=== PATIENT | male | born 1975 | race Caucasian/White ===

== ENCOUNTER 2018-06-12 13:07 | Inpatient (IN) | payer OTHER ==
[~2018-06-12] VITALS: Ht 167.6 cm; Wt 99.8 kg
--- NOTE | 2018-06-12 13:25 | NUR ---
PRE ADMISSION: Pt in intake . His gait is steady. He is A/o X 4 with blunted affect and depressed mood. He denies S/I and H/I. BP 120/59 P 86 R 16 O2 sat 98% Steady gait. He reports he drinks wine, 2 bottles daily (1500 ml ) for the last 2 weeks. Prior to 2 weeks ago he reports drinking 4 bottles daily (3000 ml) but has tapered down.Last drank 750 ml of wine at 0700 this AM. he states he relapsed 2 years ago after having 5 years of sobriety. He reports he cannot stop drinking on his own as he has terrible w/d symptoms which include tremors,dry heaves,hallucinations,irritability and weakness. He reports Cirrhosis of the liver,insomnia,depression and anxiety. He sees a liver specialist and brought home medications r/t liver disease. He states he went to ER in [place] last Monday because he tried to stop drinking on his own and they sent him to [facility] in [place] where he was turned away because of his liver condition. Will assess Pt on unit.
[2018-06-12] MEDS ORDERED: SERT100T PO (13:45)
[2018-06-12] MEDS ORDERED: RIFA550T PO (13:45)
[2018-06-12] MEDS ORDERED: SPIR100T5 PO (13:45)
[2018-06-12] MEDS ORDERED: TRAZ-214 PO (13:45)
[2018-06-12] MEDS ORDERED: GABA-534 PO (13:45)
[2018-06-12] MEDS ORDERED: OMEP20CA10 PO (13:45)
[2018-06-12] MEDS ORDERED: potassium (13:45)
[2018-06-12] MEDS ORDERED: MILK175T2 PO (13:45)
[2018-06-12] MEDS ORDERED: MULT-1121 PO (13:45)
[2018-06-12 13:59] LABS: *AMPHETAMINE, URINE NEGATIVE (NEGATIVE); *BARBITURATE, URINE NEGATIVE (NEGATIVE); *CANNABINOID, URINE NEGATIVE (NEGATIVE); *COCCAINE, URINE NEGATIVE (NEGATIVE); *OPIATE, URINE NEGATIVE (NEGATIVE); *PHENCYCLIDINE SCREEN,URINE NEGATIVE (NEGATIVE)
--- NOTE | 2018-06-12 15:00 | NUR ---
ADMISSION: A 43 year old male admitted for medically supervises withdrawal from ETOH. No denies allergies. He is A/O x 4. He presents with blunted affect and depressed mood. he denies S/I and H/I. He denies 5150 holds or psychiatric hospitalizations in his history. He is disheveled and his hands are tremulous. He reports having one seizure that he is aware of in October of 2017 in ER. Tremors noted to bilateral hands. He reports anxiety,tremors,mild nausea and irritability.CIWA 14. His abdomen is distended ,tender and hard to the touch. He reports medical hx of Cirrhosis diagnosed 2 years ago. He also reports depression and anxiety.He states he has had 2 paracentesis to r/t ascites from Cirrhosis. The last one in October 2017. He is on diuretics which he brought from home and Zoloft for depression. Pt states he is unable to stop drinking on his own and when he does he gets so sick that he has to go to ER. He went to ER last Monday after not drinking all day and they gave him a Librium pill and sent him to [facility] where he states he was turned away because of his liver disease. He reports his s/s of w/d are horrible and include hallucinations,tremors,dry heaves,sweats,irritability,weakness and severe anxiety. SUBSTANCE USE: ETOH: He reports he drinks Wine, 2 bottles daily (1500 ml ) for the last 2 weeks. Prior to 2 weeks ago he reports drinking 4 bottles daily (3000 ml) but has tapered down.Last drank 750 ml of wine at 0700 this AM. He states he relapsed 2 years ago after having 5 years of sobriety. He reports he cannot stop drinking on his own. He reports having 5 years of sobriety until 5 years ago and thinks his depression was a trigger when he relapsed. he thinks his obstacles for staying sober are loneliness and depression. He has been to [facility] for outpatient and inpatient at least 3 times but is not clear about time periods. He reports that drinking has caused his to leave him 1.5 years ago with his 2 kids and his health is also suffering due to his drinking problem. He reports that his motivation to stop drinking is to get his family back and improve his health.e states" I want my life back". He reports he blacks out on occasion when he drinks and states everyone is fed up with his drinking. Offered support. Oriented Pt to staff and unit. Assured him that nursing staff is available 27/03. Will continue to provide safe and supportive environment. Addendum: 06/12/18 at 1609 by CJ ALBARRAN RN Correction: Regarding Substance abuse. he has been drinking for 2 years and had 5 years of sobriety prior with a 20 year history. Addendum: 06/12/18 at 1820 by CJ ALBARRAN RN Edema noted to BLE. He is currently on Diuretics.
[2018-06-12] MEDS ORDERED: MAGNESIUM HYDROXIDE 30 ML LIQUID UDC PO PRN (15:30)
[2018-06-12] MEDS ORDERED: ONDANSETRON ODT 4 MG TAB.RAPDIS SL PRN (15:30)
[2018-06-12] MEDS ORDERED: THIAMINE HCL 200 MG/2 ML VIAL IM ONE (15:30)
[2018-06-12] MEDS ORDERED: ONDANSETRON 4 MG/2 ML VIAL IM PRN (15:30)
[2018-06-12] MEDS ORDERED: CLONIDINE HCL 0.1 MG TABLET PO PRN (15:30)
[2018-06-12] MEDS ORDERED: LOPERAMIDE HCL 2 MG CAPSULE PO PRN ×2 (15:30)
[2018-06-12] MEDS ORDERED: MAG HYDROX/AL HYDROX/SIMETH 30 ML LIQUID UDC PO PRN (15:30)
[2018-06-12] MEDS ORDERED: ACETAMINOPHEN 325 MG TABLET PO PRN (15:30)
[2018-06-12] MEDS ORDERED: LORAZEPAM 1 MG TABLET PO PRN (15:30)
[2018-06-12] MEDS ORDERED: LORAZEPAM 2 MG/1 ML VIAL IM PRN (15:30)
[2018-06-12 16:00] VITALS: BP 122/68
[2018-06-12 16:06] LABS: BASOPHILS % (AUTO) 0.6 % (0.0-2.0); EOSINOPHILS % (AUTO) 1.3 % (0.0-7.0); HEMATOCRIT 28.8 % (36.7-47.1); HEMOGLOBIN 9.4 g/dL (12.5-16.3); LYMPHOCYTES # (AUTO) 0.2 K/uL (20.0-40.0); LYMPHOCYTES % (AUTO) 5.8 % (20.5-51.5); MEAN CORPUSCULAR HEMOGLOBIN 25.9 uug (23.8-33.4); MEAN CORPUSCULAR HGB CONC 33 g/dL (32.5-36.3); MEAN CORPUSCULAR VOLUME 79.6 fL (73.0-96.2); MONOCYTES # (AUTO) 0.2 K/uL (2.0-10.0); NEUTROPHILS # (AUTO) 2.3 K/uL (1.8-8.9); NEUTROPHILS % (AUTO) 83.3 % (38.5-71.5); PLATELET COUNT (AUTO) 80 K/uL (152-348); RED BLOOD CELL COUNT(AUTO) 3.62 MIL/uL (4.06-5.63); WHITE BLOOD COUNT (AUTO) 2.8 K/uL (3.6-10.2)
--- NOTE | 2018-06-12 16:20 | NUR ---
PRN Ativan 1 mg PO given for CIWA 14. He reports anxiety,sweats,tremors,restlessness and mild nausea.Thiamine injection administered as ordered. Will monitor effectiveness of PRN.
[2018-06-12] MEDS: LORAZEPAM 1 MG TABLET PO PRN (16:21)
[2018-06-12 16:25] LABS: BILIRUBIN,TOTAL 1.1 mg/dL (0.2-1.0); CREATININE 0.7 mg/dL (0.6-1.3); MAGNESIUM 1.7 mg/dL (1.8-2.4); TOTAL PROTEIN, SERUM 6.9 g/dL (6.4-8.2)
[2018-06-12 16:34] LABS: BAND % (MANUAL) 1 % (0-10); EOSINOPHILS % (MANUAL) 1 % (0-8); LYMPHOCYTES % (MANUAL) 7 % (20-40); MONOCYTES % (MANUAL) 3 % (2-10); NEUTROPHILS % (MANUAL) 88 % (42-75)
[2018-06-12 16:36] LABS: THYROID STIMULATING HORMONE 0.773 mIU/mL (0.358-3.740)
--- NOTE | 2018-06-12 17:20 | NUR ---
PRN Ativan effective CIWA 10
[2018-06-12] MEDS: RIFAXIMIN 550 MG PO SCH (17:30)
[2018-06-12] MEDS: SPIRONOLACTONE 100 MG TABLET PO SCH (17:30)
[2018-06-12] MEDS: GABAPENTIN 300 MG CAPSULE PO SCH (17:31)
--- NOTE | 2018-06-12 18:53 | NUR ---
END OF SHIFT: Newly admitted today for ETOH withdrawal. Ativan 1 mg PO PRN given and effective.Thiamine injection also given as ordered. Last CIWA 10. Medicated as ordered at 1700. He has Cirrhosis of the liver and his abdomen is distended. Ativan taper to start tomorrow. Ativan PRN available. Seizure precautions noted. Will pass shift report to oncoming night nurse.
--- NOTE | 2018-06-12 19:30 | NUR ---
Start of shift note Received report from day shift nurse. Patient is a 43 year old male newly admitted for ETOH withdrawal. Patient was placed on 5 day Ativan taper to start tomorrow. Patient with PMH of liver cirrhosis. Patient was given PRN Ativan. Thiamine injection given. Last CIWA 10. Patient in the room, resting. Upon assessment, patient presents with flat affect, depressed mood, worried, unshaven, odorous and disheveled. Safety measures in place. Call light in reach. Will continue to monitor.
[2018-06-12 20:00] VITALS: BP 120/68
--- NOTE | 2018-06-12 20:00 | NUR ---
CIWA assessment Patient presents with anxiety, restlessness, has bilateral hand tremors, sensitive to light and sounds, sweating, muscle aches and headache. CIWA 16.
--- NOTE | 2018-06-12 20:00 | NUR ---
COWS and CIWA assessment Patient presents with anxiety , restless, chills, intermittent perspiration , irritability, agitated and tremors. COWS 10 and CIWA 10. Addendum: 06/13/18 at 0042 by FELIPE GALVIN LVN Error: this charting is for another patient
[2018-06-12] MEDS: METHOCARBAMOL 750 MG TABLET PO PRN (20:41)
[2018-06-12] MEDS: TRAZODONE 100 MG TABLET PO SCH (20:42)
--- NOTE | 2018-06-12 20:45 | NUR ---
PRN Ativan and Robaxin administration Patient presents with anxiety, restlessness, has bilateral hand tremors, sensitive to light and sounds, sweating, muscle aches and headache. CIWA 16. Will continue to monitor
[2018-06-12] MEDS ORDERED: MAGNESIUM OXIDE 400 MG TABLET PO ONE (21:00)
[2018-06-13] VITALS: BP 98/53
--- NOTE | 2018-06-13 | NUR ---
CIWA deferred Patient lying in bed with eyes closed. Respiration even and unlabored. Will continue to monitor
[2018-06-13 04:00] VITALS: BP 101/59
--- NOTE | 2018-06-13 04:00 | NUR ---
CIWA deferred Patient lying in bed with eyes closed. Respiration even and unlabored. Will continue to monitor
[2018-06-13] MEDS: METHOCARBAMOL 750 MG TABLET PO PRN (05:24)
[2018-06-13] MEDS: LORAZEPAM 1 MG TABLET PO PRN (05:24)
--- NOTE | 2018-06-13 05:24 | NUR ---
DOUGLAS Diop and Robaxin administration Patient woke up anxious, restless, tremulous and sweating. GERMAN 11. Addendum: 06/13/18 at 0627 by FELIPE GALVIN LVN C/o muscle aches
--- NOTE | 2018-06-13 06:24 | NUR ---
PRN Ativan and Robaxin re-assessment CIWA deferred. Patient lying in bed with eyes closed. Respiration even and unlabored. Will continue to monitor.
[2018-06-13] MEDS: PANTOPRAZOLE SODIUM 40 MG TABLET.DR PO SCH (06:56)
--- NOTE | 2018-06-13 07:18 | NUR ---
End of shift note Patient slept 9 hours. Fluid intake 1,605 ml. Voided x 3. No BM. Monitored patient throughout shift. Patient with PMH of liver cirrhosis. Patient presented with flat affect, depressed mood, unshaven, odorous , disheveled, anxiety, restlessness, bilateral hand tremors, sensitive to light and sounds, sweating, muscle aches and headache. Scheduled medication given as ordered. Taper to start today. PRN Ativan x 2 and Robaxin x 2 given . Last CIWA 11. Safety measures in place. Call light within reach. Will continue to monitor.
[2018-06-13 08:06] LABS: HEPATITIS B SURFACE AG Negative (Negative)
[2018-06-13 08:10] VITALS: BP 95/60
--- NOTE | 2018-06-13 08:10 | NUR ---
START OF SHIFT: Received pt A/O X 4. He presents with restricted affect and anxious mood. Tremors noted to BUE. He reports restless sleep last night. He reports anxiety,depression,irritability,sweats and muscle cramps in his legs. CIWA 16 Ativan taper started to manage s/s of w/d. Encouraged rest today. He refused PPD and states he got vaccinated in [place]. Will inform MD. Seizure precautions noted. Will continue to monitor and manage s/s of w/d.
[2018-06-13] MEDS: MULTIVITAMINS,THERAPEUTIC TABLET PO SCH (08:56)
[2018-06-13] MEDS: RIFAXIMIN 550 MG PO SCH ×2 (08:56→16:58)
[2018-06-13] MEDS: GABAPENTIN 300 MG CAPSULE PO SCH ×2 (08:56→16:59)
[2018-06-13] MEDS: LORAZEPAM 1 MG TABLET PO SCH ×4 (08:56→20:07)
[2018-06-13] MEDS: FOLIC ACID 1 MG TABLET PO SCH (08:56)
[2018-06-13] MEDS: SPIRONOLACTONE 100 MG TABLET PO SCH ×2 (08:56→16:58)
[2018-06-13] MEDS: THIAMINE HCL 100 MG TABLET PO SCH (08:56)
[2018-06-13] MEDS ORDERED: Medication Not On Formulary EA (Omeprazole 20 MG) PO SCH (09:00)
[2018-06-13] MEDS ORDERED: TUBERCULIN,PURIF.PROT.DERIV. 5 TU/0.1 ML TEST ID ONE (09:00)
[2018-06-13] MEDS ORDERED: 5 DAY TAPER OF LORAZEPAM -SERENITY PROTOCOL PO PRN (09:00)
[2018-06-13 12:00] VITALS: BP 105/60
--- NOTE | 2018-06-13 12:15 | NUR ---
BARBARAWA 14. He is tremulous. He reports sweats,anxiety,restlessness and irritability. He also reports fatigue and depression and denies S/I and H/I.
[2018-06-13 16:00] VITALS: BP 111/61
[2018-06-13 16:07] LABS: BILIRUBIN,TOTAL 1.5 mg/dL (0.2-1.0); CREATININE 0.7 mg/dL (0.6-1.3); MAGNESIUM 1.9 mg/dL (1.8-2.4); POTASSIUM 4.5 mmol/L (3.5-5.1); TOTAL PROTEIN, SERUM 6.3 g/dL (6.4-8.2)
[2018-06-13] MEDS: LACTULOSE 20 G/30 ML LIQUID UDC PO SCH ×2 (18:19→20:07)
--- NOTE | 2018-06-13 18:30 | NUR ---
END OF SHIFT: Pt started Ativan taper to manage s/s of w/d which include anxiety,depression,tremors,sweats,restlessness ,irritability and fatigue.Last CIWA 13. Elevated Ammonia levels noted. New order for Lactulose 30ml per MD noted and administered. He has been sleeping on and off most of shift. He is A/o x 4. He is compliant with medication and rest as encouraged. Sz. precautions noted. Safety measures in place.Will pass shift report to oncoming night nurse.
--- NOTE | 2018-06-13 19:15 | NUR ---
Start of shift note Received report from day shift nurse. Pt is a 43 yo male, A+Ox4, presenting to [facility] for medically supervised ETOH withdrawal. Pt noted with fine tremors, anxiety, agitation, and restlessness. Pt has HX of Cirrhosis, depression, anxiety, and insomnia which will be monitored during shift. Pt is on 5 day Ativan taper, tolerated well. Respirations even and unlabored. Will continue to monitor.
[2018-06-13 20:05] VITALS: BP 108/63
[2018-06-13] MEDS: TRAZODONE 100 MG TABLET PO SCH (20:07)
--- NOTE | 2018-06-13 20:30 | NUR ---
CIWA Assessment CIWA: 10. Pt noted with fine tremors, sweat on brow, anxiety, agitation, and mild itchiness. Respirations even and unlabored. Will continue to monitor.
--- NOTE | 2018-06-14 00:50 | NUR ---
V/S refused and CIWA Assessment deferred for sleep. Respirations even and unlabored. Will continue to monitor.
--- NOTE | 2018-06-14 04:41 | NUR ---
V/S refused and CIWA Assessment deferred for sleep. Respirations even and unlabored. Will continue to monitor.
[2018-06-14] MEDS: PANTOPRAZOLE SODIUM 40 MG TABLET.DR PO SCH (06:28)
--- NOTE | 2018-06-14 07:00 | NUR ---
End of shift note Pt was continuously noted with fine tremors, anxiety, and agitation. Pt remained in room for entire shift. Pt remained cooperative and compliant with all aspects of treatment. Pt was not given any PRN medications during shift. Pt remains on 5 day Ativan taper, tolerated well. Pt slept for a total of 11 HRS. Last CIWA: 10 @2029. Respirations even and unlabored. Will endorse to day shift nurse.
--- NOTE | 2018-06-14 07:30 | NUR ---
START OF SHIFT Endorse rcvd from ongoing nurse, client is in bed, lying on his back, sounds asleep, easy to arouse, RR 16 even, non-labored. Client had an uneventful night. he slept 11hrs. Last CIWA 10 @ 2029. Seizure precautions. Bed in lowest/locked position, side rails x 2 up/padded. Call light within reach. Will continue to monitor.
[2018-06-14 08:09] VITALS: BP 97/58
[2018-06-14] MEDS: SPIRONOLACTONE 100 MG TABLET PO SCH ×2 (09:47→16:18)
[2018-06-14] MEDS: GABAPENTIN 300 MG CAPSULE PO SCH ×2 (09:47→16:18)
[2018-06-14] MEDS: LACTULOSE 20 G/30 ML LIQUID UDC PO SCH (09:47)
[2018-06-14] MEDS: MULTIVITAMINS,THERAPEUTIC TABLET PO SCH (09:47)
[2018-06-14] MEDS: LORAZEPAM 1 MG TABLET PO SCH ×3 (09:47→20:04)
[2018-06-14] MEDS: FOLIC ACID 1 MG TABLET PO SCH (09:47)
[2018-06-14] MEDS: THIAMINE HCL 100 MG TABLET PO SCH (09:47)
[2018-06-14] MEDS: RIFAXIMIN 550 MG PO SCH ×2 (09:47→16:18)
[2018-06-14] MEDS: SERTRALINE HCL 100 MG TABLET PO SCH (09:47)
--- NOTE | 2018-06-14 09:47 | NUR ---
WA 16 Client is in room, he is a/o x 4, he appears disheveled, unshaven, he presents with depressed mood, flat affect, flushed facial skin, tremors, and difficulty concentrating. Client reports having no desire to get out of bed, anxiety, cold/chills, sweats, depression, fatigue, difficulty sleeping, nausea, abdominal cramps, panic feeling, and restless legs. Encourage client to increase PO fluid as tolerated to facilitate detox. Schedule Ativan 2mg PO administered. Call light within reach.
--- NOTE | 2018-06-14 10:30 | NUR ---
Therapist prompted client to attend all group therapy sessions.
--- NOTE | 2018-06-14 11:00 | NUR ---
Reassess VTE no edema noted at extremities. CN notified. VTE 2, Intermittent Pneumatic CD at bedside. Client verbalized the need to wear them while in bed.
--- NOTE | 2018-06-14 11:11 | NUR ---
Nursing noted Client reports history of hemorrhoids since is early 20's. CN notified.
--- NOTE | 2018-06-14 12:30 | NUR ---
CIWA 16 Client is in bed, he reports anhedonia, anxiety, chills, clammy skin, depression, flushed facial skin, abdominal spasms, nausea, restless legs, and fatigue. Client reports one episode of loose stool. Encourage client to increase PO fluid intake as tolerated to maintain rehydration and facilitated detox. Non-pharmacologic measures provided. Will continue to monitor. Call light within reach.
[2018-06-14 12:43] VITALS: BP 128/77
--- NOTE | 2018-06-14 14:13 | NUR ---
PRN Zofran 4mg SL administered for intermittent nausea, no episodes of emesis. Bibi bailey and saltine crackers at bedside. Will continue to monitor. Call light within reach.
--- NOTE | 2018-06-14 14:43 | NUR ---
Reassess PRN Zofran 4mg SL , client reports relief from nausea. Call light within reach.
[2018-06-14 16:40] VITALS: BP 114/60
--- NOTE | 2018-06-14 16:45 | NUR ---
CIWA 15 Client continues to present with anxiety, chills, clammy skin, depression, flushed facial skin, abdominal spasms, nausea, diarrhea, restless legs, and fatigue. Encourage client to increase PO fluid intake as tolerated to maintain rehydration and facilitated detox. Non-pharmacologic measures provided. Will continue to monitor. Call light within reach.
--- NOTE | 2018-06-14 19:26 | NUR ---
END OF SHIFT Endorse client to incoming nurse, client is in room continues to present with anxious mood, flat affect, avoidant gaze, tremors, clammy skin, nausea, difficulty concentrating, poor appetite, chills, sweats, restless legs, depression, and difficulty thinking clearly. Last CIWA 15 @ 1640. PRN medications administered and noted per protocol. Client is not compliant with group therapy d/t above withdrawal symptoms. PO fluid intake 1240mL, void x 6, stool x 3. Consumes 50% of meals. Seizure precautions in place. Bed in lowest/locked position, side rails x 2 up/padded. Call light within reach.
--- NOTE | 2018-06-14 19:27 | NUR ---
Start of shift note Received report from day shift nurse. Pt is a 43 yo male, A+ox4, presenting to [facility] for medically supervised ETOH withdrawal. Pt noted with muscle aches, restlessness, anxiety, and agitation. Pt has HX of Cirrhosis, depression, anxiety, insomnia, PTSD, and seizure which will be monitored during shift. Pt is on 5 day Ativan taper, tolerated well. Respirations even and unlabored. Will continue to monitor.
[2018-06-14] MEDS: TRAZODONE 100 MG TABLET PO SCH (20:04)
[2018-06-14] MEDS: METHOCARBAMOL 750 MG TABLET PO PRN (20:04)
--- NOTE | 2018-06-14 20:04 | NUR ---
PRN Robaxin Pt c/o generalized muscle pain 04/13 and requested for PRN Robaxin. Medication given and tolerated well. Will reassess within 1 HR. Will continue to monitor.
[2018-06-14 20:57] VITALS: BP 110/54
--- NOTE | 2018-06-14 20:57 | NUR ---
CIWA Assessment CIWA: 10. Pt noted with fine tremors, sweat on brow, anxiety, and agitation. Respirations even and unlabored. Will continue to monitor.
--- NOTE | 2018-06-14 21:02 | NUR ---
PRN Robaxin Reassessment Medication effective. Pt expresses reduction of muscle pain to 4/10. Respirations even and unlabored. Will continue to monitor.
--- NOTE | 2018-06-15 00:52 | NUR ---
V/S refused and CIWA Assessment deferred for sleep. Respirations even and unlabored. Will continue to monitor.
[2018-06-15] MEDS: HYDROXYZINE PAMOATE 25 MG CAPSULE PO PRN (01:47)
--- NOTE | 2018-06-15 01:52 | NUR ---
PRN Vistaril Pt c/o anxiety and requested for PRN Vistaril. Medication given and tolerated well. Will reassess within 1 HR. Will continue to monitor.
--- NOTE | 2018-06-15 02:43 | NUR ---
PRN Vistaril Reassessment Medication effective. Pt expresses reduction of anxiety. No s/s of ASE noted at this time. Respirations even and unlabored. Will continue to monitor.
--- NOTE | 2018-06-15 04:34 | NUR ---
V/S refused and CIWA Assessment deferred for sleep. Respirations even and unlabored. Will continue to monitor.
[2018-06-15] MEDS: PANTOPRAZOLE SODIUM 40 MG TABLET.DR PO SCH (06:40)
--- NOTE | 2018-06-15 07:00 | NUR ---
End of shift note Pt was continuously noted with anxiety, fine tremors, agitation, and restlessness. Pt remained in room for majority of shift except to get food from kitchen and to interact with other patients in recreational room. Pt remained cooperative and compliant with all aspects of treatment. Pt was given PRN Robaxin @2003 and PRN Vistaril @0150. Pt remains on 5 day Ativan taper, tolerated well. Pt slept for a total of 9 HRS. Last CIWA: 10 @2056. Respirations even and unlabored. Will endorse to day shift nurse.
[2018-06-15 07:02] LABS: BASOPHILS % (AUTO) 1.2 % (0.0-2.0); EOSINOPHILS # (AUTO) 0.3 K/uL (0.0-0.7); EOSINOPHILS % (AUTO) 6.5 % (0.0-7.0); HEMATOCRIT 30.9 % (36.7-47.1); LYMPHOCYTES # (AUTO) 0.3 K/uL (20.0-40.0); LYMPHOCYTES % (AUTO) 7.1 % (20.5-51.5); MEAN CORPUSCULAR HEMOGLOBIN 25.8 uug (23.8-33.4); MEAN CORPUSCULAR HGB CONC 32 g/dL (32.5-36.3); MEAN CORPUSCULAR VOLUME 79.7 fL (73.0-96.2); MONOCYTES # (AUTO) 0.4 K/uL (2.0-10.0); MONOCYTES % (AUTO) 9.5 % (0.0-11.0); NEUTROPHILS % (AUTO) 75.7 % (38.5-71.5); PLATELET COUNT (AUTO) 100 K/uL (152-348); RED BLOOD CELL COUNT(AUTO) 3.88 MIL/uL (4.06-5.63)
[2018-06-15 07:22] LABS: BILIRUBIN,TOTAL 1.7 mg/dL (0.2-1.0); CREATININE 0.9 mg/dL (0.6-1.3); MAGNESIUM 1.7 mg/dL (1.8-2.4); POTASSIUM 4.2 mmol/L (3.5-5.1); TOTAL PROTEIN, SERUM 6.7 g/dL (6.4-8.2)
[2018-06-15 08:00] VITALS: BP 122/76
--- NOTE | 2018-06-15 08:00 | NUR ---
Start of Shift Notes/CIWA Assessment: Endorsement received from night nurse. Patient is a 43 year old male admitted for ETOH withdrawal who was placed on a 5-day Ativan taper as ordered. No adverse reactions noted. Per night report, patient was given Robaxin and Vistaril during the night. Last CIWA 10. Slept for 9 hours. Patient was seen in his room. Laying in bed. Affect is flat and appears worried. Encouraged patient to verbalize his feelings and concerns. He complains of having nightmares and vivid dreams during the night. Facial flushing was noted and gross tremors noted. He was also tremulous and complains of anxiety and agitation. Denies S/I or H/I noted. No AV hallucinations noted. CIWA 14. Educated patient on his current plan of care for the day and his medication regimen. Encouraged oral fluid intake and encouraged group participation to learn new skills to prevent relapse. Will continue to monitor.
[2018-06-15] MEDS: THIAMINE HCL 100 MG TABLET PO SCH (08:45)
[2018-06-15] MEDS: FOLIC ACID 1 MG TABLET PO SCH (08:45)
[2018-06-15] MEDS: MULTIVITAMINS,THERAPEUTIC TABLET PO SCH (08:45)
[2018-06-15] MEDS: GABAPENTIN 300 MG CAPSULE PO SCH ×2 (08:45→16:33)
[2018-06-15] MEDS: SERTRALINE HCL 100 MG TABLET PO SCH (08:45)
[2018-06-15] MEDS: LORAZEPAM 1 MG TABLET PO SCH ×4 (08:46→20:38)
[2018-06-15] MEDS: RIFAXIMIN 550 MG PO SCH ×2 (08:46→16:37)
[2018-06-15] MEDS: SPIRONOLACTONE 100 MG TABLET PO SCH ×2 (08:46→16:34)
--- NOTE | 2018-06-15 11:30 | NUR ---
MD Communication: Labs Relayed to MD Bah patient's abnormal lab results drawn today especially Mag level of 1.7L. Per MD, he will enter in orders.
[2018-06-15 12:00] VITALS: BP 122/70
--- NOTE | 2018-06-15 12:30 | NUR ---
CIWA Assessment: CIWA 12, patient continues to present with gross tremors, anxiety, agitation, flat affect, worried facial expression, anhedonia, fatigue and difficulty concentrating. Will continue with medicate patient as ordered.
[2018-06-15 16:00] VITALS: BP 119/68
--- NOTE | 2018-06-15 16:30 | NUR ---
CIWA Assessment: CIWA 12, patient continues to appear with gross tremors, facial flushing, diaphoresis, anxiety and agitation. PRNs offered. Support provided. Will continue to monitor.
--- NOTE | 2018-06-15 19:03 | NUR ---
End of Shift Notes: Patient continues to be on 5-day Ativan taper as ordered. No adverse reactions noted. VS monitored closely. No significant abnormalities noted. Withdrawal symptoms were closely monitored. Initial CIWA 14, patient presented with facial flushing, gross tremors, anxiety, agitation, vivid dreams, self isolation, flat affect, worried facial expression, decreased appetite, anhedonia, malaise, fatigue, diaphoresis, and generalized discomfort. Last CIWA 12. Patient requires encouragement to attend group and activities due to self isolation. Patient verbalizes that Ativan has been effective in reducing his withdrawal symptoms. Appetite fair. All needs met and attended. Will continue to monitor closely.
--- NOTE | 2018-06-15 19:12 | NUR ---
Start of shift note Received report from day shift nurse. Pt is a 43 yo male, A+Ox4, presenting to [facility] for medically supervised ETOH withdrawal. Pt noted with anxiety, restlessness, and agitation. Pt has HX of cirrhosis, depression, anxiety, insomnia, seizure, and PTSD which will be monitored during shift. Pt remains on 5 day Ativan taper, tolerated well. Respirations even and unlabored. Will continue to monitor.
[2018-06-15 20:10] VITALS: BP 108/61
--- NOTE | 2018-06-15 20:10 | NUR ---
CIWA Assessment CIWA: 10. Pt noted with fine tremors, sweat on brow, anxiety, and agitation. Respirations even and unlabored. Will continue to monitor.
[2018-06-15] MEDS: TRAZODONE 100 MG TABLET PO SCH (20:38)
[2018-06-15] MEDS: METHOCARBAMOL 750 MG TABLET PO PRN (21:30)
--- NOTE | 2018-06-15 21:30 | NUR ---
PRN Robaxin Pt c/o generalized muscle aches/spasms/cramping 04/13 and requested for PRN Robaxin. Medication given and tolerated well. Will reassess within 1 HR. Will continue to monitor.
--- NOTE | 2018-06-15 22:30 | NUR ---
PRN Robaxin Reassessment Medication effective. Pt expresses reduction of muscle aches/spasms/cramps. No s/s of ASE noted at this time. Respirations even and unlabored. Will continue to monitor.
--- NOTE | 2018-06-16 00:36 | NUR ---
V/S refused and CIWA Assessment deferred for sleep. Respirations even and unlabored. Will continue to monitor.
--- NOTE | 2018-06-16 04:47 | NUR ---
V/S refused and CIWA Assessment deferred for sleep. Respirations even and unlabored. Will continue to monitor.
[2018-06-16] MEDS: PANTOPRAZOLE SODIUM 40 MG TABLET.DR PO SCH (06:33)
--- NOTE | 2018-06-16 07:00 | NUR ---
End of shift note Pt was continuously noted with restlessness, anxiety, and agitation. Pt remained in room for majority of shift except to get food from kitchen and to go smoke on smoking patio. Pt remained cooperative and compliant with all aspects of treatment. Pt was given PRN Robaxin @0. Pt remains on 5 day Ativan taper, tolerated well. Pt slept for a total of 5 HRS. Last CIWA: 10 @2009. Respirations even and unlabored. Will endorse to day shift nurse.
[2018-06-16 08:00] VITALS: BP 98/53
--- NOTE | 2018-06-16 08:00 | NUR ---
Start of Shift Notes/CIWA Assessment: Endorsement received from night nurse. Patient is a 43 year old male admitted for ETOH withdrawal who was placed on a 5-day Ativan taper as ordered. No adverse reactions noted. Per night report, patient was given Robaxin during the night. Last CIWA 10. Slept for a total of 5 hours. Patient was seen in his room. Alert and oriented x 4. Denies S/I or H/I noted. No AV hallucinations noted. Affect is flat and appears worried. Encouraged patient to verbalize his feelings and concerns. Facial flushing was noted and gross tremors noted to BUE. He complains of anxiety and agitation. CIWA 14. Educated patient on his current plan of care for the day and his medication regimen. Encouraged oral fluid intake and encouraged group participation to learn new skills to prevent relapse. Will continue to monitor.
[2018-06-16 08:31] LABS: BASOPHILS # (AUTO) 0.1 K/uL (0.0-8.0); BASOPHILS % (AUTO) 1.3 % (0.0-2.0); EOSINOPHILS # (AUTO) 0.3 K/uL (0.0-0.7); EOSINOPHILS % (AUTO) 6.2 % (0.0-7.0); HEMOGLOBIN 10.2 g/dL (12.5-16.3); LYMPHOCYTES # (AUTO) 0.4 K/uL (20.0-40.0); LYMPHOCYTES % (AUTO) 7.7 % (20.5-51.5); MEAN CORPUSCULAR HEMOGLOBIN 25.5 uug (23.8-33.4); MEAN CORPUSCULAR HGB CONC 32 g/dL (32.5-36.3); MEAN CORPUSCULAR VOLUME 79.6 fL (73.0-96.2); MONOCYTES # (AUTO) 0.5 K/uL (2.0-10.0); MONOCYTES % (AUTO) 11.4 % (0.0-11.0); NEUTROPHILS # (AUTO) 3.4 K/uL (1.8-8.9); NEUTROPHILS % (AUTO) 73.4 % (38.5-71.5); PLATELET COUNT (AUTO) 109 K/uL (152-348); RED BLOOD CELL COUNT(AUTO) 4.02 MIL/uL (4.06-5.63); WHITE BLOOD COUNT (AUTO) 4.6 K/uL (3.6-10.2)
[2018-06-16 08:34] LABS: MAGNESIUM 1.9 mg/dL (1.8-2.4)
[2018-06-16] MEDS: FOLIC ACID 1 MG TABLET PO SCH (08:34)
[2018-06-16] MEDS: THIAMINE HCL 100 MG TABLET PO SCH (08:34)
[2018-06-16] MEDS: SERTRALINE HCL 100 MG TABLET PO SCH (08:34)
[2018-06-16] MEDS: LORAZEPAM 1 MG TABLET PO SCH ×3 (08:34→20:14)
[2018-06-16] MEDS: RIFAXIMIN 550 MG PO SCH ×2 (08:34→16:26)
[2018-06-16] MEDS: MULTIVITAMINS,THERAPEUTIC TABLET PO SCH (08:34)
[2018-06-16] MEDS: SPIRONOLACTONE 100 MG TABLET PO SCH ×2 (08:34→16:26)
[2018-06-16] MEDS: GABAPENTIN 300 MG CAPSULE PO SCH ×2 (08:34→16:26)
[2018-06-16 12:00] VITALS: BP 101/53
--- NOTE | 2018-06-16 12:21 | NUR ---
CIWA Assessment: CIWA 12, patient continues to present with s/s of withdrawal m/b diaphoresis, gross tremors, fatigue, malaise, difficulty concentrating, depressed mood and generalized discomfort and BUE tremors. Offered PRNs. Support provided. Oral fluids pushed.
[2018-06-16] MEDS: LACTULOSE 20 G/30 ML LIQUID UDC PO PRN (14:24)
--- NOTE | 2018-06-16 14:26 | NUR ---
PRN LACTULOSE Complaints of constipation. Lactulose oral prn per MD order given and tolerated well.
--- NOTE | 2018-06-16 15:00 | NUR ---
Therapist prompted client to attend group therapy.
--- NOTE | 2018-06-16 15:26 | NUR ---
Re-assessment: Lactulose No results noted from Lactulose at this time. Encouraged to increase activity and oral fluid intake.
[2018-06-16 16:00] VITALS: BP 96/68
--- NOTE | 2018-06-16 16:39 | NUR ---
CIWA Assessment: CIWA 11, patient presented with gross tremors, anxiety, agitation, diaphoresis, difficulty concentrating, fatigue and generalized discomfort. Will medicate patient as ordered.
--- NOTE | 2018-06-16 19:04 | NUR ---
End of Shift Notes: Patient continues to be on 5-day Ativan taper as ordered. No adverse reactions noted. VS monitored closely. No significant abnormalities noted. Withdrawal symptoms were closely monitored. Initial CIWA 14, patient presented with facial flushing, gross tremors, anxiety, agitation, difficulty concentrating, self isolation, flat affect, worried facial expression, decreased appetite, anhedonia, malaise, fatigue, diaphoresis, and generalized discomfort. Last CIWA 11. Patient was not able to participate in group and activities due to his withdrawal symptoms. PRN Lactulose given at 1424 for constipation. Patient verbalizes that Ativan has been effective in reducing his withdrawal symptoms. Appetite fair. All needs met and attended. Will continue to monitor closely.
--- NOTE | 2018-06-16 19:30 | NUR ---
Start of shift note Received report from day shift nurse. Patient is a 43 year old male admitted for ETOH withdrawal. Patient is on 4th day of his 5 day Ativan taper. Patient was given PRN Lactulose. Last CIWA 11. Patient alert and oriented x 4. Patient presents with flat affect, depressed mood, worried, emotional volatility, unshaven and disheveled. Per patient he did not have BM. Lactulose ineffective. Encourage fluids. Safety measures in place. Call light within reach. Will continue to monitor.
[2018-06-16 20:00] VITALS: BP 107/60
--- NOTE | 2018-06-16 20:00 | NUR ---
CIWA assessment Patient is anxious, restless, has bilateral hand tremors, intermittent sweating, restless legs, body aches and insomnia. CIWA 11.
[2018-06-16] MEDS: METHOCARBAMOL 750 MG TABLET PO PRN (20:14)
[2018-06-16] MEDS: TRAZODONE 100 MG TABLET PO SCH (20:14)
--- NOTE | 2018-06-16 20:14 | NUR ---
PRN Robaxin administration Patient c/o restless legs and generalized body aches. Will monitor for effectiveness
--- NOTE | 2018-06-16 21:14 | NUR ---
PRN Robaxin re-assessment Patient states Robaxin is helpful and effective. Pain is lessened
[2018-06-17] VITALS: BP 106/70
--- NOTE | 2018-06-17 | NUR ---
CIWA deferred Patient lying in bed with eyes closed. Respiration even and unlabored. Will continue to monitor.
[2018-06-17 04:00] VITALS: BP 110/76
--- NOTE | 2018-06-17 04:00 | NUR ---
CIWA deferred Patient lying in bed with eyes closed. Respiration even and unlabored. Will continue to monitor.
[2018-06-17] MEDS: PANTOPRAZOLE SODIUM 40 MG TABLET.DR PO SCH (06:32)
--- NOTE | 2018-06-17 07:05 | NUR ---
End of shift note Patient slept 7 hours. Fluid intake 1,296 ml. Voided x 2. No BM. Patient presented with flat affect, depressed mood, worried, emotional volatility, unshaven and disheveled. Patient was anxious, restless, has bilateral hand tremors, intermittent sweating, restless legs, body aches and insomnia. Scheduled medication and taper given, tolerated and no adverse reaction. Patient was given PRN Robaxin for body aches, helpful and effective. Encouraged fluids. Last CI. Safety measures in place. Call light in reach. Will continue to monitor
[2018-06-17 08:00] VITALS: BP 122/76
--- NOTE | 2018-06-17 08:00 | NUR ---
Start of Shift Notes/CIWA Assessment: Endorsement received from night nurse. Patient is a 43 year old male admitted for ETOH withdrawal who was placed on a 5-day Ativan taper as ordered. No adverse reactions noted. Per night report, patient was given Robaxin during the night. Last CIWA 11. Slept for a total of 7 hours. Patient was seen in his room. Alert and oriented x 4. Denies S/I or H/I noted. No AV hallucinations noted. Affect is flat. Facial flushing noted. Gross tremors noted to BUE. Reports that he is sleeping better. He complains of anxiety and agitation. CIWA 15. Educated patient on his current plan of care for the day and his medication regimen. Encouraged oral fluid intake and encouraged group participation to learn new skills to prevent relapse. Will continue to monitor.
[2018-06-17] MEDS: LORAZEPAM 1 MG TABLET PO SCH ×2 (08:01→20:46)
[2018-06-17] MEDS: GABAPENTIN 300 MG CAPSULE PO SCH ×2 (08:02→16:28)
[2018-06-17] MEDS: FOLIC ACID 1 MG TABLET PO SCH (08:02)
[2018-06-17] MEDS: SERTRALINE HCL 100 MG TABLET PO SCH (08:02)
[2018-06-17] MEDS: MULTIVITAMINS,THERAPEUTIC TABLET PO SCH (08:02)
[2018-06-17] MEDS: RIFAXIMIN 550 MG PO SCH ×2 (08:03→16:28)
[2018-06-17] MEDS: SPIRONOLACTONE 100 MG TABLET PO SCH ×2 (08:03→16:28)
[2018-06-17] MEDS: THIAMINE HCL 100 MG TABLET PO SCH (08:03)
[2018-06-17 08:04] LABS: EOSINOPHILS # (AUTO) 0.3 K/uL (0.0-0.7); EOSINOPHILS % (AUTO) 7.4 % (0.0-7.0); HEMATOCRIT 30.9 % (36.7-47.1); HEMOGLOBIN 9.9 g/dL (12.5-16.3); LYMPHOCYTES # (AUTO) 0.3 K/uL (20.0-40.0); MEAN CORPUSCULAR HEMOGLOBIN 25.6 uug (23.8-33.4); MEAN CORPUSCULAR HGB CONC 32 g/dL (32.5-36.3); MEAN CORPUSCULAR VOLUME 79.9 fL (73.0-96.2); MONOCYTES # (AUTO) 0.4 K/uL (2.0-10.0); MONOCYTES % (AUTO) 12.1 % (0.0-11.0); NEUTROPHILS # (AUTO) 2.5 K/uL (1.8-8.9); NEUTROPHILS % (AUTO) 71.5 % (38.5-71.5); PLATELET COUNT (AUTO) 105 K/uL (152-348); RED BLOOD CELL COUNT(AUTO) 3.86 MIL/uL (4.06-5.63); WHITE BLOOD COUNT (AUTO) 3.5 K/uL (3.6-10.2)
[2018-06-17 08:12] LABS: BILIRUBIN,DIRECT 0.8 mg/dL (0.0-0.2); BILIRUBIN,TOTAL 1.2 mg/dL (0.2-1.0); CREATININE 0.8 mg/dL (0.6-1.3); POTASSIUM 4.1 mmol/L (3.5-5.1); TOTAL PROTEIN, SERUM 6.3 g/dL (6.4-8.2)
[2018-06-17] MEDS ORDERED: LACTULOSE 20 G/30 ML LIQUID UDC PO ONE (11:30)
--- NOTE | 2018-06-17 11:35 | NUR ---
OT Lactulose OT Lactulose 30cc PO given due to elevated ammonia level. Patient education provided. Will continue to monitor.
[2018-06-17 12:00] VITALS: BP 102/55
--- NOTE | 2018-06-17 12:30 | NUR ---
CIWA Assessment: CIWA 12, patient continues to present with s/s of withdrawal mb: gross tremors, diaphoresis, facial flushing, malaise, fatigue and generalized discomfort. Offered PRNs. Support provided. Oral fluids encouraged. Will continue to monitor.
[2018-06-17 16:00] VITALS: BP 123/72
--- NOTE | 2018-06-17 16:07 | NUR ---
CIWA Assessment: CIWA 12, patient continues to present with s/s of ETOH withdrawal m/b increased anxiety, agitation, diaphoresis and gross tremors to BUE. Will continue to monitor.
--- NOTE | 2018-06-17 16:36 | NUR ---
Therapist prompted client to attend all group therapy sessions.
--- NOTE | 2018-06-17 19:03 | NUR ---
End of Shift Notes: Patient continues to be on 5-day Ativan taper as ordered. No adverse reactions noted. This is patients 4th day of his taper. VS monitored closely. No significant abnormalities noted. Withdrawal symptoms were closely monitored. Initial CIWA 15, patient presented with facial flushing, gross tremors, anxiety, agitation, difficulty concentrating, , flat affect, worried facial expression, decreased appetite, anhedonia, malaise, fatigue, diaphoresis, and generalized discomfort. Last CIWA 12. Requires encouragement to participate in group and activities due to episodes of self isolation and withdrawn at times. Patient verbalizes that Ativan has been effective in reducing his withdrawal symptoms. Appetite fair. All needs met and attended. Will continue to monitor closely.
--- NOTE | 2018-06-17 19:30 | NUR ---
START OF SHIFT Pt is a 43 year old male admitted for ETOH withdrawal. Pt is on 5th day of his 5 day Ativan taper. Last CIWA 12. Pt is A/A/O x 4. Pt received in bed, presents with flat affect, depressed mood, worried, c/o anxiety and generalized aches and pain. Per report,OT Lactulose was given due to elevated ammonia level.No c/o constipation or diarrhea noted. Encourage PO fluids.Safety measures in place. Call light within reach. Will continue to monitor.
[2018-06-17 20:00] VITALS: BP 109/56
--- NOTE | 2018-06-17 20:00 | NUR ---
CIWA Assessment: CIWA 10, pt continues to present with s/s of withdrawal m/b anxiety,general malaise, fatigue and generalized body ache. Eomtional support provided. Oral fluids encouraged. Will continue to monitor.
[2018-06-17] MEDS: TRAZODONE 100 MG TABLET PO SCH (20:47)
[2018-06-17] MEDS: METHOCARBAMOL 750 MG TABLET PO PRN (20:59)
[2018-06-17] MEDS: HYDROXYZINE PAMOATE 25 MG CAPSULE PO PRN (20:59)
--- NOTE | 2018-06-17 21:00 | NUR ---
PRN MEDICATIONS PRN Vistaril given as ordered for c/o anxiety.PRN Robaxin 750 mg PO given for myalgia.Will monitor for effectiveness.
--- NOTE | 2018-06-17 22:00 | NUR ---
PRN REASSESSMENT Pt is calm and resting in bed with eyes;will continue to monitor.
--- NOTE | 2018-06-18 | NUR ---
CIWA deferred Patient lying in bed with eyes closed. Respiration even and unlabored,no s/s of distress noted,v/s refused.Will continue to monitor.
--- NOTE | 2018-06-18 04:00 | NUR ---
CIWA deferred Patient lying in bed with eyes closed. Respiration even and unlabored,no s/s of distress noted,v/s refused.Will continue to monitor.
[2018-06-18] MEDS: PANTOPRAZOLE SODIUM 40 MG TABLET.DR PO SCH (07:05)
--- NOTE | 2018-06-18 07:45 | NUR ---
START OF SHIFT Pt is a 43 yr old male, AA&Ox4. Pt was admitted on 06/12/18 for ETOH Withdrawal and has completed a 5 day Ativan taper as ordered. Received report from operation shift supervisor nurse. Pt received Vistaril PRN and Robaxin PRN for anxiety and muscle aches. Medication was effective. Last CIWA score was 10. pt slept for 8 hours. Pt states he had a difficulty time sleeping during the night. Pt states, "I have a lot on my time". Pt is observed with flat affect and avoidant in eye contact. skin is warm and clammy to touch. Safety precautions observed. will continue to monitor. Addendum: 06/18/18 at 1428 by MEL COOPER LVN ERROR IN DOCUMENTATION. Pt states, "I have a lot on my mind"
[2018-06-18 07:57] LABS: BASOPHILS % (AUTO) 0.2 % (0.0-2.0); EOSINOPHILS # (AUTO) 0.2 K/uL (0.0-0.7); HEMATOCRIT 31.2 % (36.7-47.1); LYMPHOCYTES # (AUTO) 0.3 K/uL (20.0-40.0); LYMPHOCYTES % (AUTO) 9.5 % (20.5-51.5); MEAN CORPUSCULAR HEMOGLOBIN 25.7 uug (23.8-33.4); MEAN CORPUSCULAR HGB CONC 32 g/dL (32.5-36.3); MEAN CORPUSCULAR VOLUME 80.1 fL (73.0-96.2); MONOCYTES # (AUTO) 0.4 K/uL (2.0-10.0); MONOCYTES % (AUTO) 11.9 % (0.0-11.0); NEUTROPHILS # (AUTO) 2.6 K/uL (1.8-8.9); NEUTROPHILS % (AUTO) 72.4 % (38.5-71.5); PLATELET COUNT (AUTO) 115 K/uL (152-348); RED BLOOD CELL COUNT(AUTO) 3.89 MIL/uL (4.06-5.63); WHITE BLOOD COUNT (AUTO) 3.6 K/uL (3.6-10.2)
[2018-06-18 08:00] VITALS: BP 93/53
--- NOTE | 2018-06-18 08:00 | NUR ---
CIWA ASSESSMENT Pt was c/o anxiety, agitation, chills, and muscle aches. CIWA score was 6. Will continue to monitor
[2018-06-18 08:11] LABS: BILIRUBIN,DIRECT 0.7 mg/dL (0.0-0.2); BILIRUBIN,TOTAL 1.5 mg/dL (0.2-1.0); TOTAL PROTEIN, SERUM 6.4 g/dL (6.4-8.2)
[2018-06-18] MEDS: SPIRONOLACTONE 100 MG TABLET PO SCH ×2 (09:28→17:09)
[2018-06-18] MEDS: THIAMINE HCL 100 MG TABLET PO SCH (09:28)
[2018-06-18] MEDS: RIFAXIMIN 550 MG PO SCH ×2 (09:28→17:09)
[2018-06-18] MEDS: GABAPENTIN 300 MG CAPSULE PO SCH ×2 (09:28→17:08)
[2018-06-18] MEDS: MULTIVITAMINS,THERAPEUTIC TABLET PO SCH (09:29)
[2018-06-18] MEDS: SERTRALINE HCL 100 MG TABLET PO SCH (09:29)
[2018-06-18] MEDS: FOLIC ACID 1 MG TABLET PO SCH (09:29)
[2018-06-18] MEDS: LACTULOSE 20 G/30 ML LIQUID UDC PO PRN (09:52)
--- NOTE | 2018-06-18 09:52 | NUR ---
PRN GIVEN Pt was given Lactulose 20g/30ML for Encephalopathy. Pt was able to tolerate medication. Will continue to monitor.
[2018-06-18 12:00] VITALS: BP 113/71
--- NOTE | 2018-06-18 12:00 | NUR ---
CIWA ASSESSMENT Pt was c/o anxiety, agitation, and chills. pt is observed with flat affect and avoidant in eye contact. CIWA score was 6. Will continue to monitor
[2018-06-18] MEDS ORDERED: HYDR-3895 PO (14:49)
[2018-06-18] MEDS ORDERED: RIFA550T PO (14:49)
[2018-06-18] MEDS ORDERED: SERT100T PO (14:49)
[2018-06-18] MEDS ORDERED: GABA-534 PO (14:49)
[2018-06-18] MEDS ORDERED: SPIR100T5 PO (14:49)
[2018-06-18] MEDS ORDERED: OMEP20CA10 PO (14:49)
[2018-06-18] MEDS ORDERED: TRAZ150T75 PO (14:49)
[2018-06-18] MEDS ORDERED: METH-406 PO (14:49)
[2018-06-18] MEDS ORDERED: LACT10SO7 PO (14:51)
[2018-06-18 16:00] VITALS: BP 134/72
[2018-06-18] MEDS: HYDROXYZINE PAMOATE 25 MG CAPSULE PO PRN (17:09)
--- NOTE | 2018-06-18 17:09 | NUR ---
PRN GIVEN Pt was c/o increase anxiety due to discharge for tomorrow on 06/19/18. pt is noted with fine tremors and sweats. Clonidine 0.1mg PO PRN and Vistaril 50mg PO PRN was given as ordered. Encouraged increase fluid intake. Will continue to monitor.
--- NOTE | 2018-06-18 19:10 | NUR ---
END OF SHIFT Pt is a 43 yr old male, AA&Ox4. Pt was admitted on 06/12/18 for ETOH withdrawal and has completed a 5 day Ativan taper as order. Pt has been cooperative with medication regimen and plan of care. Pt was c/o anxiety, sweats and chills. Fine tremors were seen. Pt states of feeling anxious due to discharged. Pt was given Clonidine 0.1mg PO PRN and Vistaril 50mg PO PRN for anxiety. Medication was effective. Pt was also given Lactulose 30ml for encephalopathy. Last CIWA score was 10 at 1600. Pt was encouraged increase fluid intake for hydration. Safety precautions observed. Endorsed to shift engineer nurse to continue with care.
[2018-06-18 20:00] VITALS: BP 105/53
--- NOTE | 2018-06-18 20:00 | NUR ---
Start of Shift Patient presents with anxiety and tremors, noted to be flushed. Patient was given Clonidine and Vistaril for anxiety at 1709 and they were effective. Patient verbalized that he "feels better" at this time. Patient also noted to be in depressed mood and is melancholic. Patient also c/o generalized muscle pain=5/10, PRN medication to be administered. Fall, universal, seizure and safety prec in place. Call light within reach. Latest CIWA=9. Will continue to monitor.
[2018-06-18] MEDS: METHOCARBAMOL 750 MG TABLET PO PRN (20:23)
--- NOTE | 2018-06-18 20:24 | NUR ---
PRN Robaxin Patient c/o generalized muscle pain=6/10. Administered Robaxin 750 mg PO PRN. Will reassess.
[2018-06-18] MEDS ORDERED: TRAZODONE 100 MG TABLET PO SCH (21:00)
--- NOTE | 2018-06-18 21:30 | NUR ---
Robaxin reassess Patient verbalized generalized muscle pain=2/10.
[2018-06-19] VITALS: BP 101/58
--- NOTE | 2018-06-19 | NUR ---
CIWA=8 Patient continues to be isolative and melancholic. Patient verbalized that he has intermittent anxiety.
[2018-06-19 04:00] VITALS: BP 112/61
--- NOTE | 2018-06-19 04:00 | NUR ---
CIWA=7 Patient continues to have tremors and intermittent anxiety. Patient in depressed mood but verbalized that he is ready for the next step.
[2018-06-19] MEDS: PANTOPRAZOLE SODIUM 40 MG TABLET.DR PO SCH (07:13)
--- NOTE | 2018-06-19 07:18 | NUR ---
End of Shift Patient is anxious regarding his discharge. He verbalized that he wants to mentally prepare himself for the next step in his recovery. Patient continues to be melancholic and isolative. Patient's generalized muscle pain=2/10. Patient is observed to have tremors. Fall, universal, seizure and safety prec in place. Call light within reach. Latest CIWA=7, slept for 7 hours. Endorsed to AM shift nurse for continuity of care.
--- NOTE | 2018-06-19 07:30 | NUR ---
START OF SHIFT Endorse rcvd from ongoing nurse, client is in room, he is a/o x 4, he presents with depressed mood, flat affect, tremors felt, and anxiety. Client reports feeling depressed because after his treatment at [facility] he will be living alone, without his and three children, he stated, "I am going to try my best this time, get a different sponsor and go to AA meetings often." Last CIWA 7. PRN Benadryl 50mg PO administered for sleep, he slept 7 hrs. Client completed 5 day Ativan taper. Seizure precautions in place. Call light within reach.
[2018-06-19] MEDS: THIAMINE HCL 100 MG TABLET PO SCH (08:10)
[2018-06-19] MEDS: MULTIVITAMINS,THERAPEUTIC TABLET PO SCH (08:10)
[2018-06-19] MEDS: RIFAXIMIN 550 MG PO SCH ×2 (08:10→08:53)
[2018-06-19] MEDS: GABAPENTIN 300 MG CAPSULE PO SCH (08:10)
[2018-06-19] MEDS: FOLIC ACID 1 MG TABLET PO SCH (08:10)
[2018-06-19] MEDS: SERTRALINE HCL 100 MG TABLET PO SCH (08:10)
[2018-06-19] MEDS: SPIRONOLACTONE 100 MG TABLET PO SCH (08:10)
[2018-06-19] MEDS: HYDROXYZINE PAMOATE 25 MG CAPSULE PO PRN (08:53)
--- NOTE | 2018-06-19 08:53 | NUR ---
PRN Vistaril 50mg PO administered for anxiety. Call light within reach.
[2018-06-19 08:59] VITALS: BP 101/60
--- NOTE | 2018-06-19 09:47 | NUR ---
Discharge Note Client discharged in stable condition with all valuable, belongings, prescription, and home medications. Client denies SI/HI. To [facility] via private car.
== END 2018-06-19 09:47 | disposition other institution (70) | DRG 895 ==
LOC: SRC 13:07
PROVIDERS: ADMIT Family Medicine Addiction Medicine; ATTEND Family Medicine Addiction Medicine
PROC: HZ2ZZZZ Detoxification Services for Substance Abuse Treatment (ICD-10-PCS; principal; 2018-06-12)
PROC: HZ31ZZZ Individual Counseling for Substance Abuse Treatment, Behavioral (ICD-10-PCS; 2018-06-14)
PROC: HZ41ZZZ Group Counseling for Substance Abuse Treatment, Behavioral (ICD-10-PCS; 2018-06-15)
DX: F10.230 Alcohol dependence with withdrawal, uncomplicated (principal); F33.2 Major depressive disorder, recurrent severe without psychotic features; E87.1 Hypo-osmolality and hyponatremia; Y90.8 Blood alcohol level of 240 mg/100 ml or more; K70.30 Alcoholic cirrhosis of liver without ascites; F41.1 Generalized anxiety disorder; F43.10 Post-traumatic stress disorder, unspecified; E83.42 Hypomagnesemia; G47.00 Insomnia, unspecified; D50.9 Iron deficiency anemia, unspecified; D69.6 Thrombocytopenia, unspecified; D72.819 Decreased white blood cell count, unspecified; E88.09 Other disorders of plasma-protein metabolism, not elsewhere classified; F17.210 Nicotine dependence, cigarettes, uncomplicated; K70.40 Alcoholic hepatic failure without coma
CPT/HCPCS: 36415; 70030-TC; 80307; 80346; 83690; 83735; 84443; 85025; 85610; 86592; 86705; 86803; 87340; 87806; G0480; J3411; Q0162

== ENCOUNTER 2018-09-17 16:07 | Inpatient (IN) | payer OTHER ==
[~2018-09-17] VITALS: Ht 160 cm; Wt 95.3 kg
[~2018-09-17 16:07] MED LIST: GABA-534 PO; HYDR-3895 PO; LACT10SO7 PO; METH-406 PO; MILK175T2 PO; MULT-1121 PO; OMEP20CA10 PO; RIFA550T PO; SERT100T PO; SPIR100T5 PO; TRAZ150T75 PO
--- NOTE | 2018-09-17 16:30 | NUR ---
pre-assessment note: pt is severely intoxicated, pt is tremulous and anxious about admitting V/S WNL. explained to patient unit protocols and procedures and pt verbalized understanding
[2018-09-17] MEDS ORDERED: DIAZEPAM 10 MG TABLET PO PRN (17:00)
[2018-09-17] MEDS ORDERED: MIRALAX 17 GM POWD.PACK PO PRN (17:00)
[2018-09-17] MEDS ORDERED: MAGNESIUM HYDROXIDE 30 ML LIQUID UDC PO PRN (17:00)
[2018-09-17] MEDS ORDERED: ONDANSETRON ODT 4 MG TAB.RAPDIS SL PRN (17:00)
[2018-09-17] MEDS ORDERED: THIAMINE HCL 200 MG/2 ML VIAL IM ONE (17:00)
[2018-09-17] MEDS ORDERED: LORAZEPAM 2 MG/1 ML VIAL IM PRN (17:00)
[2018-09-17] MEDS ORDERED: MAG HYDROX/AL HYDROX/SIMETH 30 ML LIQUID UDC PO PRN (17:00)
[2018-09-17] MEDS ORDERED: IBUPROFEN 600 MG TABLET PO PRN (17:00)
[2018-09-17] MEDS ORDERED: LOPERAMIDE HCL 2 MG CAPSULE PO PRN ×2 (17:00)
[2018-09-17] MEDS ORDERED: SRC ALCOHOL WITHDRAWAL ADMITTING PROTOCOL XX PRN (17:00)
[2018-09-17] MEDS ORDERED: ACETAMINOPHEN 325 MG TABLET PO PRN (17:00)
[2018-09-17] MEDS ORDERED: LORAZEPAM 0.5 MG TABLET PO PRN ×2 (17:00)
[2018-09-17 17:14] LABS: BASOPHILS # (AUTO) 0.1 K/uL (0.0-8.0); BASOPHILS % (AUTO) 3.9 % (0.0-2.0); EOSINOPHILS # (AUTO) 0.1 K/uL (0.0-0.7); EOSINOPHILS % (AUTO) 3.8 % (0.0-7.0); HEMATOCRIT 32.8 % (36.7-47.1); HEMOGLOBIN 10.5 g/dL (12.5-16.3); LYMPHOCYTES # (AUTO) 0.3 K/uL (20.0-40.0); LYMPHOCYTES % (AUTO) 14.3 % (20.5-51.5); MEAN CORPUSCULAR HEMOGLOBIN 22.9 uug (23.8-33.4); MEAN CORPUSCULAR HGB CONC 32 g/dL (32.5-36.3); MEAN CORPUSCULAR VOLUME 71.6 fL (73.0-96.2); MONOCYTES # (AUTO) 0.4 K/uL (2.0-10.0); MONOCYTES % (AUTO) 18.1 % (0.0-11.0); NEUTROPHILS # (AUTO) 1.4 K/uL (1.8-8.9); NEUTROPHILS % (AUTO) 59.9 % (38.5-71.5); PLATELET COUNT (AUTO) 119 K/uL (152-348); RED BLOOD CELL COUNT(AUTO) 4.58 MIL/uL (4.06-5.63); WHITE BLOOD COUNT (AUTO) 2.4 K/uL (3.6-10.2)
[2018-09-17 17:18] LABS: *AMPHETAMINE, URINE NEGATIVE (NEGATIVE); *BARBITURATE, URINE NEGATIVE (NEGATIVE); *CANNABINOID, URINE POSITIVE (NEGATIVE); *COCCAINE, URINE NEGATIVE (NEGATIVE); *OPIATE, URINE NEGATIVE (NEGATIVE); *PHENCYCLIDINE SCREEN,URINE NEGATIVE (NEGATIVE)
[2018-09-17] MEDS: ONDANSETRON 4 MG/2 ML VIAL IM PRN (17:28)
[2018-09-17] MEDS: HYDROXYZINE PAMOATE 25 MG CAPSULE PO PRN (17:28)
[2018-09-17 17:29] LABS: CREATININE 0.8 mg/dL (0.6-1.3); MAGNESIUM 1.7 mg/dL (1.8-2.4); POTASSIUM 3.3 mmol/L (3.5-5.1); TOTAL PROTEIN, SERUM 6.9 g/dL (6.4-8.2)
[2018-09-17] MEDS: CLONIDINE HCL 0.1 MG TABLET PO PRN (17:34)
[2018-09-17 17:38] LABS: THYROID STIMULATING HORMONE 0.825 mIU/mL (0.358-3.740)
[2018-09-17 18:01] LABS: EOSINOPHILS % (MANUAL) 2 % (0-8); LYMPHOCYTES % (MANUAL) 17 % (20-40); MONOCYTES % (MANUAL) 15 % (2-10); NEUTROPHILS % (MANUAL) 66 % (42-75)
--- NOTE | 2018-09-17 18:50 | NUR ---
ADMISSION NOTE Pt is a 43 yr old male, AA&Ox4. Pt is a re-admit to [facility] for medically supervised withdrawal from ETOH. Pt is noted intoxicated from alcohol and is observed with slurred speech and breath smell of alcohol. Pt verbalized he drank 750ml of Whiskey, 375ml of sake and 6 pack of beer today at 1000. Pt is c/o anxiety and is observed shaking in bed and dry heaving. Pt was given Zofran 4mg IM PRN for nausea, Clonidine 0.1mg PO PRN and Vistaril 50mg PO PRN as ordered. Medication was effective. Pt's % Ethyl Alcohol was 0.30 upon admission, MD was made aware. CIWA score is deferred upon admission. Body check was complete; pt is noted with left knee dry scab and right posterior forearm is noted with redness elevated skin around a new tattoo. Pt states he recently had the tattoo done about 1 week ago but is c/o burning sensation. Pt states of PMH of liver Cirrhosis, Hx of Sz on October 2017, DT's, Anxiety, Depression and Paracentesis of the abdomen r/t ascites. All home medication was reconciled. Pt denies any PCP or Psychiatrist. SUBSTANCE HISTORY: ETOH - Pt states he began drinking daily since the age of 20-21 years old. Pt states for the past month he was drinking 2-3 bottles (750ml each) of Vodka and 750 ml of whiskey and 6pack (12oz each) of beer daily. Last drink was on 09/17/18 at 1000, Pt states he drank 750ml of Whiskey, 6 pack (12oz) of beer and 375ml of sake. Pt's urine drug screen was positive for Benzodiazepine, when asked pt stated, "I was in the hospital 1 week ago for alcohol intoxication and they gave me Ativan IV". Pt states he has tried multiple times to get sober and has been in multiple tenements including [facility], [facility] and [facility] in [facility]. Longest sobriety was 5 years between [id number]. Pt states due to feeling depressed and going through a divorce has caused him to relapse. Pt states his cousin has been encouraging him to go into treatment. Pt states, "My cousin is the one who is saving my life and telling me 'go get help' and that is why I am here". Pt states of wanting to maintain sobriety because drinking has caused him to lose his home, his family and now stating he stating "I don't want to lose my life". Pt is on PRN's for s/s of w/d. Pt is on fall and seizure precautions. Endorsed to administrative tech to continue with care.
[2018-09-17 18:54] VITALS: BP 132/78
--- NOTE | 2018-09-17 19:30 | NUR ---
Start of shift note Received report from day shift nurse. Patient is a 43 year old male newly admitted for ETOH withdrawal. Patient is on PRN Ativan. Patient was given PRN Zofran IM, Clonidine and Vistaril. Thiamine injection given. Patient came in intoxicated. CIWA was deferred. Patient in the room. Patient is disheveled, unshaven, emotional, teary eyed, worried and sad. Patient is anxious, restless and has bilateral hand tremors. Encouraged fluids. Relaxation technique provided. Safety measures in place. Will continue to monitor.
[2018-09-17 20:00] VITALS: BP 122/71
[2018-09-17] MEDS ORDERED: MAGNESIUM OXIDE 400 MG TABLET PO ONE (21:30)
[2018-09-17] MEDS ORDERED: POTASSIUM CHLORIDE 20 MEQ TAB.PRT.SR PO ONE (21:30)
--- NOTE | 2018-09-17 21:46 | NUR ---
PRN Ativan administration Patient is anxious, restless, irritable, has bilateral hand tremors, sensitive to light and c/o restless legs. CIWA 11
--- NOTE | 2018-09-17 22:46 | NUR ---
PRN Ativan re-assessment Patient in bed with eyes closed. Respiration even and unlabored. CIWA deferred, unable to re-assess at this time.
[2018-09-18] VITALS: BP 115/68
[2018-09-18] MEDS: ONDANSETRON 4 MG/2 ML VIAL IM PRN (00:06)
--- NOTE | 2018-09-18 00:06 | NUR ---
PRN Zofran IM administration Patient observed dry heaving. Will monitor for effectiveness
--- NOTE | 2018-09-18 00:36 | NUR ---
PRN Zofran IM re-assessment Patient states Zofran IM is helpful and effective.
[2018-09-18] MEDS: diphenhydrAMINE 50 MG CAPSULE PO PRN (00:37)
[2018-09-18] MEDS: LORAZEPAM 1 MG TABLET PO PRN ×2 (00:37→09:49)
--- NOTE | 2018-09-18 00:37 | NUR ---
PRN Ativan and Benadryl administration Patient reports increased anxiety, restlessness, observed increased bilateral hand tremors, sweating, irritability and emotional. CIWA 17. Relaxation technique provided and positive encouragement given. Will monitor for effectiveness
--- NOTE | 2018-09-18 01:37 | NUR ---
PRN Ativan and Benadryl re-assessment Patient lying in bed with eyes closed. Respiration even and unlabored. Will continue to monitor.
[2018-09-18] MEDS ORDERED: TRAZ-214 PO (01:49)
[2018-09-18] MEDS ORDERED: LEVE500T20 PO (01:49)
[2018-09-18] MEDS ORDERED: SERT50TA PO (01:49)
[2018-09-18] MEDS ORDERED: AMLO10TA7 PO (01:49)
[2018-09-18] MEDS ORDERED: FURO20TA4 PO (01:49)
[2018-09-18 04:00] VITALS: BP 110/64
--- NOTE | 2018-09-18 04:00 | NUR ---
CIWA deferred Patient lying in bed with eyes closed. Respiration even and unlabored. Will continue to monitor
--- NOTE | 2018-09-18 07:23 | NUR ---
End of shift note Monitored patient throughout shift. Patient was anxious, restless and has bilateral hand tremors. CIWA was 7 beginning of shift. At 2146, Patient was anxious, restless, irritable, has bilateral hand tremors, sensitive to light and c/o restless legs. PRN Ativan 1 mg given. CIWA was 11. Patient fell asleep after an hour. Patient woke up at 0006 and was c/o increased anxiety, restlessness , observed dry heaving . PRN Zofran IM given and Ativan 2 mg. CIWA 17 upon assessment. Zofran was effective.Patient asleep after an hour. Encouraged fluids. Relaxation technique provided and positive encouragement given. Safety measures in place. Will continue to monitor. Patient slept 7 hours. Fluid intake 250 ml. Voided x 1. No BM.
--- NOTE | 2018-09-18 07:53 | NUR ---
START OF SHIFT Endorse rcvd from ongoing nurse, client is in room, lying on his R side, he sounds asleep, easy to awaken, RR 16 even, non-labored. Room has a strong smell of alcohol, room is untidy several tissue papers and water bottles scattered on the floor. Primary nurse cleaned his environment. Client has Ativan as needed for withdrawal symptoms, see eMar. PRN Ativan 1mg, Ativan 2mg PO for CIWA 17, Zofran 4mg IM, Benadryl 50mg for insomnia, client has been sleeping for 7 hrs. [place]/Seizure precautions. Bed in lowest/locked position. Side rails x 2 up/padded. XCall light within reach. Will continue to monitor.
[2018-09-18] MEDS ORDERED: TUBERCULIN,PURIF.PROT.DERIV. 5 TU/0.1 ML TEST ID ONE (09:00)
[2018-09-18] MEDS: FOLIC ACID 1 MG TABLET PO SCH (09:49)
[2018-09-18] MEDS: THIAMINE HCL 100 MG TABLET PO SCH (09:49)
[2018-09-18] MEDS: MULTIVITAMINS,THERAPEUTIC TABLET PO SCH (09:49)
--- NOTE | 2018-09-18 09:49 | NUR ---
CIWA 21 & PRN Ativan 2mg PO Client is alert, oriented x 4, he presents with anxious mood, flat affect, gross tremors felt, intermittent nausea, sweats, and difficulty concentrating. Client reports anxiety, irritability, agitation, depression, sweating, restless legs, headache 7/10, and difficulty thinking clearly, and fatigue. Call light within reach. Will continue to monitor.
[2018-09-18 09:58] VITALS: BP 117/69
--- NOTE | 2018-09-18 10:49 | NUR ---
Reassess Ativan 2mg PO client is in bed, eyes closed, easy to awaken, RR 16 even, non-labored.
[2018-09-18] MEDS ORDERED: Medication Not On Formulary EA (Omeprazole 20 MG) PO SCH (12:45)
[2018-09-18] MEDS ORDERED: LACTULOSE 20 G/30 ML LIQUID UDC PO PRN (12:45)
[2018-09-18] MEDS ORDERED: 5 DAY TAPER OF LORAZEPAM -SERENITY PROTOCOL PO PRN (12:45)
[2018-09-18] MEDS ORDERED: PATIENT'S OWN MED PO SCH (12:45)
[2018-09-18 12:55] VITALS: BP 117/65
[2018-09-18] MEDS: FUROSEMIDE 20 MG TABLET PO SCH ×2 (13:40→16:51)
[2018-09-18] MEDS: SPIRONOLACTONE 100 MG TABLET PO SCH ×2 (13:40→16:51)
[2018-09-18] MEDS: GABAPENTIN 300 MG CAPSULE PO SCH ×2 (13:40→16:51)
[2018-09-18] MEDS: AMLODIPINE 10 MG TABLET PO SCH (13:40)
[2018-09-18] MEDS: PANTOPRAZOLE SODIUM 40 MG TABLET.DR PO SCH (13:40)
[2018-09-18] MEDS: LEVETIRACETAM 500 MG TABLET PO SCH ×2 (13:40→20:41)
--- NOTE | 2018-09-18 13:40 | NUR ---
CIWA 18 client presentS with agitation, anxiety, poor appetite, cold/chills, clammy skin, depression, difficulty concentrating, difficulty thinking clearly, emotional volatility, fatigue, tremors, flushed facial skin, inability to sleep, and pins and needle feeling on lower extremities. Gabapentin 300mg PO administered. Call light within reach. Will continue to monitor.
[2018-09-18 13:49] LABS: BASOPHILS % (AUTO) 2.1 % (0.0-2.0); EOSINOPHILS # (AUTO) 0.1 K/uL (0.0-0.7); EOSINOPHILS % (AUTO) 2.4 % (0.0-7.0); HEMATOCRIT 29.3 % (36.7-47.1); HEMOGLOBIN 9.3 g/dL (12.5-16.3); LYMPHOCYTES # (AUTO) 0.3 K/uL (20.0-40.0); LYMPHOCYTES % (AUTO) 11.7 % (20.5-51.5); MEAN CORPUSCULAR HEMOGLOBIN 23.4 uug (23.8-33.4); MEAN CORPUSCULAR HGB CONC 32 g/dL (32.5-36.3); MEAN CORPUSCULAR VOLUME 73.8 fL (73.0-96.2); MONOCYTES # (AUTO) 0.4 K/uL (2.0-10.0); MONOCYTES % (AUTO) 17.7 % (0.0-11.0); NEUTROPHILS # (AUTO) 1.4 K/uL (1.8-8.9); NEUTROPHILS % (AUTO) 66.1 % (38.5-71.5); PLATELET COUNT (AUTO) 227 K/uL (152-348); RED BLOOD CELL COUNT(AUTO) 3.97 MIL/uL (4.06-5.63); WHITE BLOOD COUNT (AUTO) 2.1 K/uL (3.6-10.2)
[2018-09-18 13:55] LABS: CREATININE 0.7 mg/dL (0.6-1.3); MAGNESIUM 1.5 mg/dL (1.8-2.4); POTASSIUM 4.2 mmol/L (3.5-5.1)
[2018-09-18 14:40] LABS: EOSINOPHILS % (MANUAL) 2 % (0-8); LYMPHOCYTES % (MANUAL) 13 % (20-40); MONOCYTES % (MANUAL) 10 % (2-10); NEUTROPHILS % (MANUAL) 75 % (42-75)
[2018-09-18] MEDS: LORAZEPAM 0.5 MG TABLET PO SCH ×2 (15:02→20:40)
--- NOTE | 2018-09-18 15:02 | NUR ---
CIWA 22 Client continues to present with anxious mood, agitation, intermittent nausea, poor appetite, anhedonia, cold/chills, body aches, restless legs, diaphoresis, agitation, difficulty concentrating, and difficulty thinking clearly. Schedule Ativan 2mg PO administered. Call light within reach. Will continue to monitor.
--- NOTE | 2018-09-18 15:30 | NUR ---
Therapist prompted client to attend group therapy.
[2018-09-18] MEDS ORDERED: MAGNESIUM OXIDE 400 MG TABLET PO ONE (16:00)
[2018-09-18 16:38] VITALS: BP 109/56
--- NOTE | 2018-09-18 19:01 | NUR ---
END OF SHIFT Endorse client to incoming nurse, client is in room, a/o x 4, client continues to present with anxious mood, agitation, intermittent nausea, poor appetite, anhedonia, cold/chills, body aches, restless legs, diaphoresis, agitation, difficulty concentrating, and difficulty thinking clearly. Client denies SI/HI. ClieNt is on 5 day Ativan taper, last CIWA 22 @ 1500. PRN Ativan 2mg PO for CIWA 21 @ 0949. Magnesium 1.5 Mag-Ox 800mg PO administered as supplement. Client is not compliant with group therapy. Consumes 25-50% of meals. Adequate PO fluid intake 2250mL, void x 8. Call light within reach.
--- NOTE | 2018-09-18 19:30 | NUR ---
Start of shift note Received report from day shift nurse. Patient is a 43 year old male admitted for ETOH withdrawal. Patient was placed on 5 day Ativan taper started today. Patient was given PRN Ativan. Last CIWA . Magnesium was replaced. Patient in the room. Patient is disheveled, unshaven, emotional, teary eyed and sad. Patient reports anxiety, restlessness, irritability, discomfort, chills and bilateral hand tremors. Encourage fluids. Relaxation technique provided and positive encouragement given. Safety measures in place. Will continue to monitor.
[2018-09-18 20:00] VITALS: BP 109/70
[2018-09-18] MEDS: PATIENT'S OWN MED PO SCH (20:41)
[2018-09-19] VITALS: BP 109/51
[2018-09-19] MEDS: diphenhydrAMINE 50 MG CAPSULE PO PRN ×2 (00:36→20:55)
--- NOTE | 2018-09-19 00:36 | NUR ---
PRN Benadryl administration Patient requests for sleep aid. Will monitor for effectiveness
--- NOTE | 2018-09-19 01:36 | NUR ---
PRN Benadryl re-assessment Patient lying in bed with eyes closed. Respiration even and unlabored. Will continue to monitor
[2018-09-19 04:00] VITALS: BP 104/59
--- NOTE | 2018-09-19 04:00 | NUR ---
CIWA deferred Patient lying in bed with eyes closed. Respiration even and unlabored. Will continue to monitor
[2018-09-19 04:08] LABS: HEPATITIS B SURFACE AG Negative (Negative)
[2018-09-19] MEDS: PANTOPRAZOLE SODIUM 40 MG TABLET.DR PO SCH (06:20)
--- NOTE | 2018-09-19 07:26 | NUR ---
End of shift note Monitored patient throughout shift. Patient reported anxiety, restlessness, irritability, discomfort, chills and bilateral hand tremors. Patient withdrawn, in his most of the shift. Scheduled medication and Ativan taper given as ordered, tolerated well. PRN Benadryl given for sleep. Continue to encouraged fluids and positive encouragement . Safety measures in place. Will continue to monitor. Slept 8 hours. Fluid intake 1,375 ml. Voided x 3. No BM.
--- NOTE | 2018-09-19 07:28 | NUR ---
Start Of Shift Report received from maintenance technician 2nd shift nurse. Patient is a 43 year old male admitted for ETOH withdrawal. Per maintenance technician 2nd shift nurse pt's last CIWA was 11. Pt continues his 5 day Ativan taper. Upon start of shift pt noted laying in his bed with his eyes closed resting, breathing even and unlabored. When greeted pt stated " Im feeling terrible can I please have my morning medications so I can feel better". Pt's room appears unorganized and messy, pt has water, soda bottles and candy wraps thrown around the room. Pt appears anxious, sweaty and flushed. During assessment, pt is AOx4. Lung sounds clear bilaterally. Radial pulse is regular and non-bounding. Abdomen soft and non-tender. Pt's skin is warm and intact. pt denies any pain at the moment. Encouraged pt to drink plenty of fluids to keep hydrated and help the detox process. Pt received PRN Benadryl last night for sleep, pt slept a total of 8 hours last night. Bed in lowest position. Side rails up x2. Call light functioning and within reach. All needs attended and met. Will continue to monitor.
[2018-09-19 08:00] VITALS: BP 100/60
[2018-09-19 08:19] LABS: BILIRUBIN,TOTAL 1.8 mg/dL (0.2-1.0); CREATININE 0.8 mg/dL (0.6-1.3); MAGNESIUM 1.6 mg/dL (1.8-2.4); POTASSIUM 3.9 mmol/L (3.5-5.1); TOTAL PROTEIN, SERUM 5.6 g/dL (6.4-8.2)
[2018-09-19] MEDS: FUROSEMIDE 20 MG TABLET PO SCH ×2 (09:00→17:23)
[2018-09-19] MEDS: LEVETIRACETAM 500 MG TABLET PO SCH ×2 (09:15→20:55)
[2018-09-19] MEDS: MULTIVITAMINS,THERAPEUTIC TABLET PO SCH (09:15)
[2018-09-19] MEDS: FOLIC ACID 1 MG TABLET PO SCH (09:15)
[2018-09-19] MEDS: AMLODIPINE 10 MG TABLET PO SCH (09:15)
[2018-09-19] MEDS: THIAMINE HCL 100 MG TABLET PO SCH (09:15)
[2018-09-19] MEDS: GABAPENTIN 300 MG CAPSULE PO SCH ×2 (09:15→17:23)
[2018-09-19] MEDS: PATIENT'S OWN MED PO SCH (09:16)
[2018-09-19] MEDS: LORAZEPAM 0.5 MG TABLET PO SCH ×4 (09:16→20:55)
[2018-09-19] MEDS: SPIRONOLACTONE 100 MG TABLET PO SCH ×2 (09:16→17:23)
--- NOTE | 2018-09-19 10:24 | NUR ---
Therapist prompted client to attend group therapy.
[2018-09-19] MEDS: METHOCARBAMOL 750 MG TABLET PO PRN (11:03)
[2018-09-19 12:00] VITALS: BP 113/67
[2018-09-19] MEDS ORDERED: MAGNESIUM OXIDE 400 MG TABLET PO ONE ×2 (14:30→17:00)
[2018-09-19 16:00] VITALS: BP 115/79
--- NOTE | 2018-09-19 19:13 | NUR ---
End of Shift Report given to retail visual merchandiser nurse, Plan of care followed, Vital signs monitored closely Q4H. Withdrawals symptoms were closely monitored, medications given as schedule. Initial CIWA 13. Pt encouraged adequate PO fluid intake as tolerated to compensate for all the water lost in sweat as well as with helping speed up the detox process. Pt presented with diaphoresis, anxiety restless legs, yawning agitation, emotional volatility and restlessness during the day. Pt received all of the scheduled medications. Pt received PRN Robaxin 750 for muscle cramps, medication was effective. Last CIWA was a 11. Pt reported that Ativan has been working well at controlling the withdrawal symptoms. Pt ate all of the meals. Pt did not attended all the groups and activities to learn new coping skills to prevent relapse. Pt denies any SI/HI. All safety measures in place, bed in lowest locked position, call light within reach. All needs met and attended.
--- NOTE | 2018-09-19 19:35 | NUR ---
START OF SHIFT Patient is a 43-year-old male admitted on 09/17/18 for ETOH withdrawal. Patient is currently on a 5-day Ativan taper, tolerating well; today is day 2 of taper. Patients last CIWA was 11 per endorsement. Patient did not received PRN Robaxin today, noted to be effective. Upon assessment, patient was observed groggy and sleepy in bed, mumbling when asked questions. SN encouraged patient to sit up to properly assess patient. Patient verbalized concern stating Im worried about my car and my job. If I lose my job this is all over. Patient is tearful when he states, I just miss my friends. I got lonely over the holidays and I messed up and I started drinking again. My left me and took the kids. Patient appears helpless, but verbalizes willingness to attempt sobriety. Patient is on fall and seizure precautions with seizure history, most recently in October 2017. Safety measures in place, side rails up x2, bed locked in low position, call light within reach. Will continue to monitor.
[2018-09-19 20:00] VITALS: BP 111/70
--- NOTE | 2018-09-19 20:55 | NUR ---
PRN BENADRYL Patient requests sleep aid for sleep. PRN Benadryl 50mg given PO. Safety measures in place, side rails up x2, bed locked in low position, call light within reach. Will monitor for effectiveness.
[2018-09-19] MEDS: RIFAXIMIN 550 MG TABLET PO SCH (20:57)
--- NOTE | 2018-09-19 21:55 | NUR ---
PRN BENADRYL REASSESSMENT Patient is observed sleeping in bed with eyes closed, respirations even and unlabored. PRN Benadryl noted to be effective. Safety measures in place, side rails up x2, bed locked in low position, call light within reach. Will continue to monitor.
[2018-09-20] VITALS: BP 106/62
[2018-09-20 04:00] VITALS: BP 116/68
[2018-09-20] MEDS: PANTOPRAZOLE SODIUM 40 MG TABLET.DR PO SCH (06:51)
--- NOTE | 2018-09-20 07:25 | NUR ---
END OF SHIFT Patient is a 43-year-old male admitted on 09/17/18 for ETOH withdrawal. Patient is currently on a 5-day Ativan taper, tolerating well; today will be day 3 of taper. Patients last CIWA was 13. Patient PRN Benadryl, noted to be effective. Patient slept for 9 hours, total intake of 653mL, void x3, stool x0. SCD in patients room. Patient is on fall and seizure precautions with seizure history, most recently in October 2017. Safety measures in place, side rails up x2, bed locked in low position, call light within reach. Will endorse to day shift.
--- NOTE | 2018-09-20 07:35 | NUR ---
START OF SHIFT Endorse rcvd from ongoing nurse, client is in room, easy to awaken, he is alert, oriented to name, place, situation, he is disoriented to date by two days. He presents with anxious mood, flat affect, gross tremors, clammy skin, flushed facial skin, dry lips, emotional volatility, difficulty thinking clearly, and difficulty concentrating. He appears disheveled, long hair oily, dirt under fingernails, and strong body odor. Room noted with scattered clothes on the floor, several food wrappers and open bottles of water on bedside table and floor. Encourage client to maintain his surroundings free of clutter to prevent a fall. Encourage client to increase PO fluid as tolerated to facilitate detox. Client is on 3rd of 5 day Ativan taper, last CIWA 13 @ 1999. Seizure precautions. Side rails x 2 up/padded. Call light within reach.
[2018-09-20 08:06] VITALS: BP 115/80
[2018-09-20] MEDS: SPIRONOLACTONE 100 MG TABLET PO SCH ×2 (08:26→16:42)
[2018-09-20] MEDS: FUROSEMIDE 20 MG TABLET PO SCH ×2 (08:26→16:42)
[2018-09-20] MEDS: RIFAXIMIN 550 MG TABLET PO SCH ×2 (08:26→21:01)
[2018-09-20] MEDS: AMLODIPINE 10 MG TABLET PO SCH (08:27)
[2018-09-20] MEDS: LORAZEPAM 0.5 MG TABLET PO SCH ×3 (08:27→21:01)
[2018-09-20] MEDS: GABAPENTIN 300 MG CAPSULE PO SCH ×2 (08:27→16:42)
[2018-09-20] MEDS: LEVETIRACETAM 500 MG TABLET PO SCH ×2 (08:27→21:01)
[2018-09-20] MEDS: MULTIVITAMINS,THERAPEUTIC TABLET PO SCH (08:27)
[2018-09-20] MEDS: THIAMINE HCL 100 MG TABLET PO SCH (08:27)
[2018-09-20] MEDS: FOLIC ACID 1 MG TABLET PO SCH (08:27)
--- NOTE | 2018-09-20 08:27 | NUR ---
WA 18 Client is alert, oriented to name, place, situation, he is disoriented to date by two days. He presents with anxious mood, flat affect, gross tremors, clammy skin, flushed facial skin, dry lips, emotional volatility, difficulty thinking clearly, and difficulty concentrating. Schedule Ativan 2mg PO administered. Call light within reach.
[2018-09-20 08:59] LABS: MAGNESIUM 1.8 mg/dL (1.8-2.4); POTASSIUM 3.7 mmol/L (3.5-5.1)
[2018-09-20 12:55] VITALS: BP 119/86
--- NOTE | 2018-09-20 12:55 | NUR ---
CIWA 16 Client presents with anxiety, agitation, gross tremors, sweats, and difficulty concentrating. Client reports restless legs, poor appetite, abdominal cramps, anxiety, restlessness, and fatigue. Deep breathing techniques demonstrated, client requires additional teaching. Will continue to monitor. Call light within reach.
[2018-09-20] MEDS: SERTRALINE HCL 50 MG TABLET PO SCH (13:27)
--- NOTE | 2018-09-20 15:00 | NUR ---
CIWA 15 Client reports abdominal cramps, agitation, anhedonia, anxiety, poor appetite, cold/chills, sweats, depression, difficulty concentrating, difficulty thinking clearly, emotional volatility, flushed facial skin, gross tremors, pins and needle feeling on BLE, and fatigue. Schedule Ativan 1mg PO administered. Encourage client to attend group therapy to learn skills to maintain sober. Call light within reach.
[2018-09-20 16:44] VITALS: BP 132/73
--- NOTE | 2018-09-20 19:18 | NUR ---
END OF SHIFT Endorse client to incoming nurse, client is in room, a/o x 4, fully ambulatory, client continues t present with abdominal cramps, agitation, anhedonia, anxiety, poor appetite, cold/chills, sweats, depression, difficulty concentrating, difficulty thinking clearly, emotional volatility, flushed facial skin, gross tremors, pins and needle feeling on BLE, and fatigue. Client is on 3rd of 5 day Ativan taper, last CIWA 15 @ 1500. Client is compliant with 2/3 of group therapy. Adequate PO fluid intake 3000mL, void x 10, stool x 1. Consumes 50-75% of meals. Seizure precautions. Bed in lowest/locked position. Call light within reach.
--- NOTE | 2018-09-20 19:30 | NUR ---
START OF SHIFT Received patient awake, alert, and oriented x4 lying in bed with eyes closed and resting. Patient is a 43 year old male admitted for medically supervised withdrawal from ETOH with secondary diagnoses of cirrhosis, anxiety, depression, seizure disorder, and history of DTs and paracentesis of the abdomen. Per endorsement, patient is on the third day of a 5 day ativan taper is generally compliant with treatment. He is on a vegetarian diet and has no known allergies. Upon assessment, patient denies pain and states that he just feels tired and has been needing to void frequently due to a diuretic he recently took. Patient made no requests for PRN meds. Patient was noted to be tremulous, anxious, and irritable. Last CIWA score is 15. HOB flat and bilateral side rails raised. All safety measures in place. Call light is functional and within reach. Will continue to monitor.
[2018-09-20 20:00] VITALS: BP 107/58
--- NOTE | 2018-09-21 | NUR ---
VITAL SIGNS DEFERRED Patient is noted lying in bed with eyes closed and even, unlabored respirations. Vital signs deferred at this time. HOB flat and bilateral side rails raised for safety. Call light is functional and within reach. Will continue to monitor.
--- NOTE | 2018-09-21 04:00 | NUR ---
VITAL SIGNS REFUSED Patient is noted lying in bed with eyes closed and even, unlabored respirations. Vital signs refused at this time. HOB flat and bilateral side rails raised for safety. Call light is functional and within reach. Will continue to monitor.
[2018-09-21] MEDS: PANTOPRAZOLE SODIUM 40 MG TABLET.DR PO SCH (06:33)
--- NOTE | 2018-09-21 07:30 | NUR ---
END OF SHIFT Patient is a 43 year old male admitted for medically supervised withdrawal from ETOH with secondary diagnoses of cirrhosis, anxiety, depression, seizure disorder, and history of DTs and paracentesis of the abdomen. During the beginning of the shift, the patient reported having withdrawal symptoms, but did not clarify on exactly what they were. Patient simply stated that he was feeling tired and had to use the restroom often due to his diuretic. Patients symptoms subsided soon after administration of schedule night meds. No PRN meds were requested or administered. Patient slept for about 5 hours during the night and stated he had to get up occasionally to use the restroom. Last CIWA score is 15. HOB flat and bilateral side rails raised. Call light is functional and within reach. All safety measures in place. Seizure and fall precautions maintained. Endorsed to oncoming AM nurse.
--- NOTE | 2018-09-21 07:42 | NUR ---
START OF SHIFT Endorse rvd from ongoing nurse, client is in room, a/o x 4, he presents with depressed mood and flat affect. He appears clean, shaven, long hair neatly combed. Client reports feeling very anxious and worried because his discharge day is approaching and he does not wish to go to [facility] because is [address] from his home and his will not be able to take his three children for visits. He also mention poor appetite, stomach cramps, mild sensitivity to ligh, restless legs, difficulty thinking clearly, inability to sleep, anhedonia, and fatigue. Client is on 4rd of 5 day Ativan taper. Last CIWA 15 @ 2200. Client had an uneventful night, he slept 5 hrs. Seizure precautions. Bed in lowest locked/position. Call light within reach.
[2018-09-21 08:10] VITALS: BP 105/64
[2018-09-21] MEDS: SPIRONOLACTONE 100 MG TABLET PO SCH ×2 (08:31→16:35)
[2018-09-21] MEDS: LEVETIRACETAM 500 MG TABLET PO SCH ×2 (08:31→20:48)
[2018-09-21] MEDS: LORAZEPAM 0.5 MG TABLET PO SCH ×2 (08:31→20:48)
[2018-09-21] MEDS: MULTIVITAMINS,THERAPEUTIC TABLET PO SCH (08:31)
--- NOTE | 2018-09-21 08:31 | NUR ---
CIWA 15 Client presents with depressed mood, irritable, flat affect, gross tremors, clammy skin, and difficulty concentrating. Client reports anxiety, agitation, poor appetite, stomach cramps, mild sensitivity to light, restless legs, difficulty thinking clearly, inability to sleep, anhedonia, and fatigue. Encourage client to attend group therapy to learn skills to maintain sober. Schedule Ativan 1mg PO administered. Call light within reach.
[2018-09-21] MEDS: FUROSEMIDE 20 MG TABLET PO SCH ×2 (08:32→16:35)
[2018-09-21] MEDS: FOLIC ACID 1 MG TABLET PO SCH (08:32)
[2018-09-21] MEDS: RIFAXIMIN 550 MG TABLET PO SCH ×2 (08:32→20:48)
[2018-09-21] MEDS: THIAMINE HCL 100 MG TABLET PO SCH (08:32)
[2018-09-21] MEDS: SERTRALINE HCL 50 MG TABLET PO SCH (08:32)
[2018-09-21] MEDS: AMLODIPINE 10 MG TABLET PO SCH (08:32)
[2018-09-21] MEDS: GABAPENTIN 300 MG CAPSULE PO SCH ×2 (08:32→16:35)
[2018-09-21 12:55] VITALS: BP 114/67
--- NOTE | 2018-09-21 12:55 | NUR ---
WA 14 Client reports agitation, anxiety, depression, flat affect, flushed facial skin, cold/chills, clammy skin, gross tremors, nausea, poor appetite, abdominal cramps, restless legs, sensitivity to light, anhedonia, difficulty concentrating, difficulty thinking clearly, emotional volatility, and fatigue. Non-pharmacologic measures rendered. Encourage client to attend group therapy to learn skills to maintain sober. Call light within reach.
[2018-09-21 16:00] VITALS: BP 127/77
--- NOTE | 2018-09-21 16:00 | NUR ---
CIWA 13 Client continues to present with depressed mood, anxiety, irritability, agitation, restless legs, gross tremors, sensitivity to light, and fatigue. Non-pharmacologic measures rendered. Call light within reach.
--- NOTE | 2018-09-21 16:19 | NUR ---
RT prompted pt to attend groups. Pt's improved group attendance was positively reinforced.
--- NOTE | 2018-09-21 19:29 | NUR ---
END OF SHIFT Endorse client to incoming nurse, client is in room, a/o x 4, fully ambulatory, client continues to present with depressed mood, anxiety, irritability, agitation, restless legs, gross tremors, sensitivity to light, and fatigue. Client is on 4rd of 5 day Ativan taper, last CIWA 15 @ 1600. Client is compliant with group therapy. Adequate PO fluid intake 4035mL, void x 10. Consumes 50-75% of meals. Seizure precautions. Bed in lowest/locked position. Call light within reach.
--- NOTE | 2018-09-21 19:30 | NUR ---
START OF SHIFT Pt is a 43 y/o male admitted on 09/17/18 for medically supervised withdrawal from ETOH. Pt is on a 5 day Ativan taper, tolerating well. Last CIWA 13 and no PRNs administered during day shift. Upon assessment pt was crying and emotional. Pt also presents with anxiety, flushed skin, sweats, photosensitivity, sensitivity to sounds, intermittent nausea, restlessness, slumped posture, tremors, and poor eye contact. Medications due. Safety measures in place. Call light within reach. Will continue to monitor.
[2018-09-21 20:00] VITALS: BP 124/64
[2018-09-21] MEDS: LACTULOSE 20 G/30 ML LIQUID UDC PO SCH (20:48)
[2018-09-21] MEDS: diphenhydrAMINE 50 MG CAPSULE PO PRN (20:56)
--- NOTE | 2018-09-21 20:56 | NUR ---
PRN BENADRYL ADMINISTRATION Pt requests sleep aid. Safety measures in place. Call light within reach. Will continue to monitor.
[2018-09-21] MEDS ORDERED: GABAPENTIN 300 MG CAPSULE PO ONE (21:15)
--- NOTE | 2018-09-21 21:56 | NUR ---
ODUGLAS KUMAR REASSESSMENT Pt remains awake, but stated he wants to lay down and is tired enough to fall asleep. Safety measures in place. Call light within reach. Will continue to monitor.
--- NOTE | 2018-09-21 22:03 | NUR ---
PRN MAALOX ADMINISTRATION Pt requests medication for heartburn. Safety measures in place. Call light within reach. Will continue to monitor.
--- NOTE | 2018-09-21 23:03 | NUR ---
PRN MAALOX REASSESSMENT Pt laying in bed with eyes closed, medication noted effective. Respirations even and unlabored. Safety measures in place. Call light within reach. Will continue to monitor.
--- NOTE | 2018-09-22 | NUR ---
VITALS REFUSED Pt laying in bed with eyes closed. Vitals refused. Respirations even and unlabored. Safety measures in place. Call light within reach. Will continue to monitor.
[2018-09-22 02:10] VITALS: BP 111/62
[2018-09-22] MEDS: HYDROXYZINE PAMOATE 25 MG CAPSULE PO PRN ×2 (02:10→21:51)
[2018-09-22] MEDS: CLONIDINE HCL 0.1 MG TABLET PO PRN (02:10)
--- NOTE | 2018-09-22 02:10 | NUR ---
PRN CLONIDINE, VISTARIL AND ZOFRAN ODT ADMINISTRATION Pt woke up from sleep and reports difficulty staying asleep. Pt is crying and emotionally labile. Pt presents with anxiety, restlessness, sweats, chills, and nausea with dry heaving. No episodes of vomiting. Safety measures in place. Call light within reach. Will continue to monitor.
--- NOTE | 2018-09-22 02:40 | NUR ---
PRN ZOFRAN ODT REASSESSMENT Pt laying in bed with eyes closed, pt has not been dry heaving since administration. Medication noted effective. Safety measures in place. Call light within reach. Will continue to monitor.
--- NOTE | 2018-09-22 03:10 | NUR ---
PRN CLONIDINE AND VISTARIL REASSESSMENT Pt laying in bed with eyes closed, medications noted effective. Respirations even and unlabored. Safety measures in place. Call light within reach. Will continue to monitor.
--- NOTE | 2018-09-22 04:30 | NUR ---
CHANGE IN PT CONDITION Pt is confused and disoriented to place, time, situation. Unable to recall his birthday/age. Pt states, "I'm worried my car is going to get towed, where is my car? I need to go find my car." Pt also stated, "Where is Luca? I need to see if he is okay, he is also in the hospital." Pt sitting at edge of bed, crying occasionally. Pt is not attempting to leave room. Vital signs: BP 117/78, HR 83, 02 96%, T 98.3, RR 17, Pain 0/10. MD notified. One time order for Ativan 2 mg. Addendum: 09/22/18 at 0602 by LAY WILLIAMSON RN Additional: GERMAN
[2018-09-22] MEDS ORDERED: LORAZEPAM 1 MG TABLET PO ONE (05:15)
--- NOTE | 2018-09-22 05:40 | NUR ---
PT UPDATE CIWA 13. Pt laying in bed awake, but appears relaxed. Pt is no longer confused and disoriented.
[2018-09-22] MEDS: PANTOPRAZOLE SODIUM 40 MG TABLET.DR PO SCH (07:03)
--- NOTE | 2018-09-22 07:27 | NUR ---
END OF SHIFT Pt is a 43 y/o male admitted on 09/17/18 for medically supervised withdrawal from ETOH. Pt is on a 5 day Ativan taper, tolerating well. Pt presented with anxiety, emotional lability, flushed skin, sweats, photosensitivity, sensitivity to sounds, nausea, restlessness, slumped posture, tremors, and poor eye contact. Pt also complained of heartburn. At 0430, pt had new onset of confusion and disorientation. Pt was disoriented to place, time, and situation with CIWA 20. One time order for Ativan 2 mg given. Upon reassessment pt was no longer disoriented and confused and CIWA 13. Scheduled medications and PRN Benadryl, Maalox, Vistaril, Clonidine, and Zofran odt administered, effective in S/S of withdrawal. Pt slept 7 hours. Intake 955 ml, void x 2, stool x 0. Safety measures in place. Call light within reach. Pts needs have been met. Endorsed t o day shift nurse.
--- NOTE | 2018-09-22 07:30 | NUR ---
START OF SHIFT Addendum: 09/22/18 at 0909 by SHILA ANDERS RN error
--- NOTE | 2018-09-22 07:30 | NUR ---
START OF SHIFT Pt 43 y/o male admitted for etoh withdrawal . Pt received in room on bed with eyes closed resting, but arousable to name. Pt alert and oriented to name, place, and time. Perrla. Skin warm and moist to touch. Respirations even and unlabored. Appears disheveled. Hair uncombed. Clothes, food wrappings, and empty drink bottles scattered throughout the room. Encouraged to maintain hygiene. Anxious and restless. Fidgety. Pressured speech Bilateral hand tremors noted. Intermittent perspiration. It was reported that pt slept for 7 hours last night. Pt is on a 5 day ativan taper and is on day 5. Bed on lowest position with side rails x2 up for safety. Call light within reach.
[2018-09-22 08:00] VITALS: BP 100/64
[2018-09-22] MEDS: MULTIVITAMINS,THERAPEUTIC TABLET PO SCH (08:15)
[2018-09-22] MEDS: FUROSEMIDE 20 MG TABLET PO SCH ×2 (08:15→16:50)
[2018-09-22] MEDS: GABAPENTIN 300 MG CAPSULE PO SCH ×2 (08:15→16:45)
[2018-09-22] MEDS: LACTULOSE 20 G/30 ML LIQUID UDC PO SCH ×2 (08:16→21:21)
[2018-09-22] MEDS: AMLODIPINE 10 MG TABLET PO SCH (08:16)
[2018-09-22] MEDS: FOLIC ACID 1 MG TABLET PO SCH (08:16)
[2018-09-22] MEDS: LEVETIRACETAM 500 MG TABLET PO SCH ×2 (08:16→21:24)
[2018-09-22] MEDS: THIAMINE HCL 100 MG TABLET PO SCH (08:16)
[2018-09-22] MEDS: SERTRALINE HCL 50 MG TABLET PO SCH (08:16)
[2018-09-22] MEDS: RIFAXIMIN 550 MG TABLET PO SCH ×2 (08:17→21:24)
[2018-09-22] MEDS: SPIRONOLACTONE 100 MG TABLET PO SCH ×2 (08:17→16:45)
[2018-09-22 08:28] LABS: BASOPHILS # (AUTO) 0.1 K/uL (0.0-8.0); BASOPHILS % (AUTO) 2.3 % (0.0-2.0); EOSINOPHILS # (AUTO) 0.3 K/uL (0.0-0.7); EOSINOPHILS % (AUTO) 8.1 % (0.0-7.0); HEMATOCRIT 29.5 % (36.7-47.1); HEMOGLOBIN 9.5 g/dL (12.5-16.3); LYMPHOCYTES # (AUTO) 0.3 K/uL (20.0-40.0); LYMPHOCYTES % (AUTO) 10.2 % (20.5-51.5); MEAN CORPUSCULAR HEMOGLOBIN 23.2 uug (23.8-33.4); MEAN CORPUSCULAR HGB CONC 32 g/dL (32.5-36.3); MEAN CORPUSCULAR VOLUME 71.9 fL (73.0-96.2); MONOCYTES # (AUTO) 0.4 K/uL (2.0-10.0); MONOCYTES % (AUTO) 12.2 % (0.0-11.0); NEUTROPHILS # (AUTO) 2.2 K/uL (1.8-8.9); NEUTROPHILS % (AUTO) 67.2 % (38.5-71.5); PLATELET COUNT (AUTO) 113 K/uL (152-348); WHITE BLOOD COUNT (AUTO) 3.2 K/uL (3.6-10.2)
[2018-09-22 08:40] LABS: BILIRUBIN,TOTAL 1.3 mg/dL (0.2-1.0); CREATININE 0.9 mg/dL (0.6-1.3); POTASSIUM 3.9 mmol/L (3.5-5.1)
[2018-09-22] MEDS ORDERED: LORAZEPAM 0.5 MG TABLET PO SCH (09:00)
[2018-09-22 09:15] LABS: EOSINOPHILS % (MANUAL) 7 % (0-8); LYMPHOCYTES % (MANUAL) 10 % (20-40); MONOCYTES % (MANUAL) 13 % (2-10); NEUTROPHILS % (MANUAL) 70 % (42-75)
--- NOTE | 2018-09-22 10:37 | NUR ---
Therapist prompted client to attend group therapy.
[2018-09-22 12:00] VITALS: BP 113/70
[2018-09-22] MEDS ORDERED: HYDR-3895 PO (14:30)
[2018-09-22] MEDS ORDERED: GABA-534 PO (14:30)
[2018-09-22] MEDS ORDERED: SPIR100T5 PO (14:30)
[2018-09-22] MEDS ORDERED: AMLO10TA7 PO (14:30)
[2018-09-22] MEDS ORDERED: FURO20TA4 PO (14:30)
[2018-09-22] MEDS ORDERED: OMEP20CA10 PO (14:30)
[2018-09-22] MEDS ORDERED: RIFA550T PO (14:30)
[2018-09-22] MEDS ORDERED: LEVE500T20 PO (14:30)
[2018-09-22] MEDS ORDERED: METH-406 PO (14:30)
[2018-09-22] MEDS ORDERED: LACT10SO7 PO (14:30)
[2018-09-22] MEDS: NEOMY/BACITRAC/POLYMI OINT 28.35 GM TUBE TOP SCH ×2 (15:32→16:47)
[2018-09-22 16:00] VITALS: BP 127/72
--- NOTE | 2018-09-22 18:28 | NUR ---
END OF SHIFT Pt 43 y/o male admitted for etoh withdrawal . Pt alert and oriented to name, place, and time. Perrla. Skin warm and moist to touch. Respirations even and unlabored. Appears disheveled. Clothes and empty drink bottles scattered throughout the room. Encouraged to maintain hygiene. Anxious and restless. Pressured speech. Irritable. Bilateral hand tremors noted. Intermittent perspiration. Last ciwa=8 @1600. Observed mostly isolative to room with no peer interaction. Low motivation for self care. Pt did not attend group activity. Pt is on a 5 day ativan taper and is on day 5. Bed on lowest position with side rails x2 up for safety. Call light within reach.
--- NOTE | 2018-09-22 19:30 | NUR ---
START OF SHIFT Received patient lying in bed with eyes closed and even unlabored respirations. Patient is a 43 year old male admitted for medically supervised withdrawal from ETOH with secondary diagnoses of cirrhosis, anxiety, depression, seizure disorder, and history of DTs and paracentesis of the abdomen. Per endorsement, patient is completing his 5 day Ativan taper. Patient was not given any PRN meds during the previous shift. Hallucinations and confusions were reported from the night before. Patient to start Risperal tonight. Last CIWA score is 8. HOB and bilateral side rails up. Bed is in a low position with wheels locked. Call light is functional and within reach. Will continue to monitor.
[2018-09-22 20:00] VITALS: BP 114/55
[2018-09-22] MEDS ORDERED: risperiDONE 1 MG TABLET PO SCH (21:00)
[2018-09-22] MEDS: diphenhydrAMINE 50 MG CAPSULE PO PRN (21:51)
--- NOTE | 2018-09-22 21:51 | NUR ---
PRN BENADRYL AND VISTARIL ADMINISTRATION Patient reported having significant anxiety and difficulty sleeping. PRN Benadryl 50 mg and Vistaril 50 mg given per MD orders and patient request. Will continue to monitor and reassess for effectiveness.
--- NOTE | 2018-09-22 22:51 | NUR ---
PRN BENADRYL AND VISTARIL REASSESSMENT Patient is noted lying in bed with eyes closed and even, unlabored respirations. HOB and bilateral side rails raised. No reports of anxiety and other negative symptoms. PRN Vistaril and Benadryl noted to be effective. Will continue to monitor.
--- NOTE | 2018-09-23 | NUR ---
VITAL SIGNS REFUSED Patient is noted lying in bed with eyes closed and even, unlabored respirations. Vital sign assessment refused at this time. Bed is in a low position with wheels locked. HOB is flat and bilateral side rails raised. Will continue to monitor.
[2018-09-23] MEDS: PANTOPRAZOLE SODIUM 40 MG TABLET.DR PO SCH (06:55)
--- NOTE | 2018-09-23 07:07 | NUR ---
END OF SHIFT Patient is noted lying in bed with eyes closed and even, unlabored respirations. Patient is a 43 year old male admitted for medically supervised withdrawal from ETOH with secondary diagnoses of cirrhosis, anxiety, depression, seizure disorder, and history of DTs and paracentesis of the abdomen. During the shift, the patient reported having anxiety and difficulty sleeping for which Benadryl and Vistaril were given and were effective. Patient was compliant and cooperative with therapeutic plan and medication regimen. Last CIWA was 7 taken at 1999. Call light within reach. Bed in a low position with wheels locked. All safety measures in place. Endorsed to oncoming AM nurse.
--- NOTE | 2018-09-23 07:30 | NUR ---
Start of shift Pt is here for medically supervised withdrawal of ETOH. Pt completed a 5 day Ativan taper. At 1999 last CIWA 7. Pt slept 9 hours last night. Pt is scheduled for discharge today. Patient c/o anxiety r/t discharge. All safety measures in place, bed locked/low position. Pt Full Code and NKA. Will continue to monitor for withdrawal symptoms.
[2018-09-23 08:24] VITALS: BP 127/81
[2018-09-23] MEDS: CLONIDINE HCL 0.1 MG TABLET PO PRN (08:34)
[2018-09-23] MEDS: GABAPENTIN 300 MG CAPSULE PO SCH (08:34)
[2018-09-23] MEDS: THIAMINE HCL 100 MG TABLET PO SCH (08:34)
[2018-09-23] MEDS: MULTIVITAMINS,THERAPEUTIC TABLET PO SCH (08:34)
[2018-09-23] MEDS: LEVETIRACETAM 500 MG TABLET PO SCH (08:34)
[2018-09-23 08:35] VITALS: BP 127/81
[2018-09-23] MEDS: FOLIC ACID 1 MG TABLET PO SCH (08:35)
[2018-09-23] MEDS: LACTULOSE 20 G/30 ML LIQUID UDC PO SCH (08:35)
[2018-09-23] MEDS: SERTRALINE HCL 50 MG TABLET PO SCH (08:35)
[2018-09-23] MEDS: AMLODIPINE 10 MG TABLET PO SCH (08:35)
[2018-09-23] MEDS: NEOMY/BACITRAC/POLYMI OINT 28.35 GM TUBE TOP SCH (08:35)
[2018-09-23] MEDS: SPIRONOLACTONE 100 MG TABLET PO SCH (08:36)
[2018-09-23] MEDS: RIFAXIMIN 550 MG TABLET PO SCH (08:36)
[2018-09-23] MEDS: FUROSEMIDE 20 MG TABLET PO SCH (08:36)
[2018-09-23] MEDS: METHOCARBAMOL 750 MG TABLET PO PRN (08:43)
[2018-09-23] MEDS: HYDROXYZINE PAMOATE 25 MG CAPSULE PO PRN (08:43)
--- NOTE | 2018-09-23 08:45 | NUR ---
PRN clonidine 0.1 mg PO for anxiety PRN Vistaril 50 mg PO for anxiety PRN Robaxin 750 mg PO for generalized body aches.
--- NOTE | 2018-09-23 09:52 | NUR ---
Discharge note- Pt has been discharged from [facility]. Pt is in stable condition, vitals WNL. Denies suicidal and homicidal ideations at this time. All documentation has been completed, paperwork signed and dated. Pt left with all his belongings, medications, and prescriptions. Pt has been discharged on 09/23/18 at 0942. notified.
== END 2018-09-23 09:42 | disposition other institution (70) | DRG 895 ==
LOC: SRC 16:07
PROVIDERS: ADMIT Family Medicine Addiction Medicine; ATTEND Family Medicine Addiction Medicine
PROC: HZ2ZZZZ Detoxification Services for Substance Abuse Treatment (ICD-10-PCS; principal; 2018-09-17)
PROC: HZ31ZZZ Individual Counseling for Substance Abuse Treatment, Behavioral (ICD-10-PCS; 2018-09-19)
PROC: HZ41ZZZ Group Counseling for Substance Abuse Treatment, Behavioral (ICD-10-PCS; 2018-09-20)
DX: F10.231 Alcohol dependence with withdrawal delirium (principal); G40.509 Epileptic seizures related to external causes, not intractable, without status epilepticus; K70.11 Alcoholic hepatitis with ascites; Y90.8 Blood alcohol level of 240 mg/100 ml or more; F41.1 Generalized anxiety disorder; K70.31 Alcoholic cirrhosis of liver with ascites; E83.42 Hypomagnesemia; K70.40 Alcoholic hepatic failure without coma; G47.00 Insomnia, unspecified; F17.210 Nicotine dependence, cigarettes, uncomplicated; F43.10 Post-traumatic stress disorder, unspecified; F32.9 Major depressive disorder, single episode, unspecified; Z63.0 Problems in relationship with spouse or partner
CPT/HCPCS: 36415; 70030-TC; 80307; 80346; 80349; 83690; 83735; 84443; 85025; 85610; 86580; 86592; 86705; 86803; 87340; 87806; A4663; G0480; J2405; J3411; Q0162; Q0163